=== PATIENT | female | born 1985 | race Caucasian/White ===

== ENCOUNTER 2019-01-11 05:35 | Inpatient (IN) | payer OTHER ==
[2019-01-11] MEDS: Lactated Ringers 1,000 ML IV SCH ×3 (07:30→18:51)
[2019-01-11] MEDS ORDERED: Acetaminophen 325 MG Tab PO PRN (07:33)
[2019-01-11] MEDS ORDERED: Nalbuphine 20 MG/ML 1 ML Syringe IVPUSH PRN (07:33)
[2019-01-11] MEDS ORDERED: Sodium Chloride 0.9% 10 ML Syringe FLUSH PRN (07:33)
[2019-01-11] MEDS ORDERED: Ondansetron 4 MG/2 ML SDV IVPUSH PRN ×2 (07:33→08:40)
[2019-01-11] MEDS ORDERED: Ampicillin 2 GM AdvVial IV ONE ×2 (07:40)
[2019-01-11] MEDS ORDERED: Sodium Chloride 0.9% 100 ML ONE (07:41)
[2019-01-11] MEDS ORDERED: Oxytocin/Lactated Ringers 10 UNIT/1,000 ML BAG IV SCH ×3 (07:45→22:24)
[2019-01-11] MEDS ORDERED: Ampicillin 2 GM in Sodium Chloride 0.9% 100 ML IV ONE (08:00)
[2019-01-11] MEDS ORDERED: Misoprostol 25 MCG (1/4 of 100 MCG) Tab ONE (08:10)
[2019-01-11] MEDS ORDERED: Misoprostol 25 MCG (1/4 of 100 MCG) Tab PO PRN (08:12)
--- NOTE | 2019-01-11 08:31 | PCM.LDHP ---
L&D History of Present Illness - General Date of Service: 01/11/19 Admit Problem/Dx: Patient Status Order with Admit Dx/Problem 01/11/19 07:33 Patient Status [ADT] Routine Admission Diagnosis/Problem Admission Diagnosis/Problem 39 weeks gestation of Source of Information: Patient History Limitations: Reports: No Limitations - History of Present Illness Introduction:: David Villanueva is a 33-year-old 001 at 39 weeks 0 days ([place] 01/18/2019) by LMP consistent with 9 week ultrasound who presents for elective induction of labor. She reports that she has continued to have some occasional contractions over the weekend but nothing regular. Denies any leaking of fluid or vaginal bleeding. Reports good movement. She reports that recently she has increased a little bit for her tobacco use 6-8 cigarettes per day. Present Illness Comments:: David Villanueva is a 33-year-old at 39 weeks 0 days ([place] 01/18/2019 end (by LMP consistent with 9 week ultrasound. Review of her labs shows O- blood type with negative antibody screen. She is immune to rubella and has a history of varicella. Her hepatitis B surface antigen, syphilis and HIV tests were all negative. Her gonorrhea and chlamydia tests were negative. She had a Pap smear done in June 2018 that returned as LGSIL with plan for colposcopy after delivery. Her cystic fibrosis test was negative. She had a negative quad screen. Her anatomy ultrasound was overall normal without any abnormalities noted. She was given RhoGAM on 11/25/2018 when she was seen in the hospital. Her 1 hour glucose tolerance test was normal at 102 on 12/30/2018. Her hematocrit was 36.5 and hemoglobin of 12.0 with platelets of 244 on 2018. She had a urine culture on 12/07/2018 that grew out group B strep and is considered colonized. Her has been complicated by: * Rh- status, vision given RhoGAM at 32 weeks gestational age. Patient to candidate for RhoGAM after delivery as indicated. * GBS bacteriuria - patient with GBS bacteriuria found on urine culture. Patient to be treated with antibiotics in labor * History of abnormal Pap smear during this - patient with LGSIL Pap smear in and plan for colposcopy after delivery * Tobacco use in - patient currently up to 6-8 cigarettes per day and considering method for quitting * History of C. difficile infection requiring stool transplant in 2016 - Related Data Allergies/Adverse Reactions: Allergies Allergy/AdvReac Type Severity Reaction Status Date / Time metoclopramide [From Reglan] Allergy Anxiety Verified 11/25/18 15:37 Home Medications: Home Meds Zolpidem Tartrate [Ambien] 10 mg PO BEDTIME PRN #30 tablet 12/02/18 [Rx] Past Medical History JAILOR History: Reports: : 2 Para: 1 - Infectious Disease History Infectious Disease History: Reports: C-Difficile (in 2016, required stool transplant) - Past Surgical History GI Surgical History: Reports: Cholecystectomy (12/2012), Other (See Below) ( Stool transplant 07/2016) Musculoskeletal Surgical History: Reports: Other (See Below) (Right hip surgery for muscular tear11/2012) Social & Family History - Tobacco Use Smoking Status *Q: Current Every Day Smoker Tobacco Use Within Last Twelve Months: Cigarettes - Tobacco Core Measures Tobacco Use/Smoking Within Last 30 Days: Yes Smoking Frequency Within Last 30 Days: Reports: Five or More Cigarettes Per Day Smokeless Tobacco Use in Last 30 Days: No Desires Tobacco Cessation Medication: Yes (considering options and will discuss at time of discharge) - Alcohol Use Alcohol Use History: No - Recreational Drug Use Recreational Drug Use: No Drug Use in Last 12 Months: No - Living Situation & Occupation Living situation: Reports: Single, with Significant Other H&P Review of Systems - Review of Systems: Review Of Systems: See Below General: Denies: Fever, Chills, Malaise, Fatigue HEENT: Reports: Headaches (occasional). Denies: Rhinitis, Post Nasal Drip, Sinus Congestion, Sore Throat, Visual Changes Pulmonary: Denies: Shortness of Breath, Wheezing, Cough Cardiovascular: Denies: Chest Pain, Palpitations, Dyspnea on Exertion Gastrointestinal: Denies: Abdominal Pain, Constipation, Diarrhea, Nausea, Vomiting Genitourinary: Denies: Dysuria, Frequency, Burning, Pain, Urgency Musculoskeletal: Reports: Back Pain (and hip pain) Skin: Denies: Rash, Lesions Hematologic/Lymphatic: Denies: Anemia, Easy Bleeding, Easy Bruising Immunologic: Reports: Seasonal Allergy L&D Exam - Exam Exam: See Below - Vital Signs Vital Signs: Last Vital Signs Temp 37.2 C 01/11/19 07:30 Pulse 104 H 01/11/19 07:30 Resp 18 01/11/19 07:30 BP 104/70 01/11/19 07:30 Pulse Ox 97 01/11/19 07:30 Weight: 93.894 kg - OB Specific Contraction Duration (sec): 0 Contraction Frequency (min): 0 Contraction Intensity: Irritability Movement: Active Heart Tones: Present Heart Tones per Min: 130 (positive 15 x 15 accelerations, no decelerations ) Heart Rate (FHR) Variability: Moderate (6-25 bmp) Presentation: Vertex Estimated Weight: 7-7.5 lbs by Leopolds - Dueñas Score Dueñas Score Cervix Position: Posterior Dueñas Score Consistency: Soft Dueñas Score Effacement: 31-50% (50%) Dueñas Score Dilation: 1-2 cm (1 cm) Dueñas Score 's Station: -3 Dueñas Score Total: 4 - Exam General: Alert, Oriented HEENT: Conjunctiva Clear, EOMI Neck: Supple, Trachea Midline Lungs: Clear to Auscultation, Normal Respiratory Effort Cardiovascular: Regular Rate, Regular Rhythm GI/Abdominal Exam: Soft, Non-Tender, No Distention. No: Guarding, Rigid, Rebound Genitourinary: Normal external exam Extremities: Normal Inspection, No Pedal Edema Skin: Warm, Dry, Intact Psychiatric: Alert, Normal Affect, Normal Mood - Problem List (1) 39 weeks gestation of SNOMED Code(s): 18028235 ICD Code: Z3A.39 - 39 WEEKS GESTATION OF Status: Acute Current Visit: Yes (2) Rh negative state in antepartum period SNOMED Code(s): 225405015 ICD Code: O26.899 - OTH RELATED CONDITIONS, UNSPECIFIED TRIMESTER; Z67.91 - UNSPECIFIED BLOOD TYPE, RH NEGATIVE Status: Acute Current Visit: Yes (3) GBS bacteriuria SNOMED Code(s): 54455623 ICD Code: R82.71 - BACTERIURIA Status: Acute Current Visit: Yes (4) Tobacco use during SNOMED Code(s): 506436018187616 ICD Code: O99.330 - SMOKING (TOBACCO) COMPLICATING , UNSP TRIMESTER Status: Acute Current Visit: Yes Problem List Initiated/Reviewed/Updated: Yes Orders Last 24hrs: Active Orders 24 hr Category Date Time Status Patient Status [ADT] Routine ADT 01/11/19 07:33 Active Activity as Tolerated [RC] PFP Care 01/11/19 07:33 Active Communication Order [RC] ASDIRECTED Care 01/11/19 07:33 Active Communication Order [RC] ASDIRECTED Care 01/11/19 08:13 Active Communication Order [RC] ASDIRECTED Care 01/11/19 08:13 Active Communication Order [RC] ASDIRECTED Care 01/11/19 08:13 Active Heart Tones [RC] ASDIRECTED Care 01/11/19 07:34 Active Non Stress Test [RC] PER UNIT ROUTINE Care 01/11/19 07:33 Active Notify Provider Vital Signs [RC] PRN Care 01/11/19 07:35 Active Notify Provider [RC] ASDIRECTED Care 01/11/19 08:13 Active Notify Provider [RC] PFP Care 01/11/19 07:33 Active Notify Provider [RC] PRN Care 01/11/19 07:33 Active Peripheral IV Care [RC] . DIRECTED Care 01/11/19 07:34 Active Pump Management, Intrathecal [RC] ASDIRECTED Care 01/11/19 07:34 Active Vaginal Exam [RC] ASDIRECTED Care 01/11/19 08:13 Active Vital Signs [RC] PER UNIT ROUTINE Care 01/11/19 07:33 Active Regular Diet [DIET] Diet 01/11/19 Breakfast Active CBC WITH AUTO DIFF [HEME] Routine Lab 01/11/19 07:33 Ordered DRUG SCREEN, URINE [URCHEM] Routine Lab 01/11/19 07:33 Ordered RAPID PLASMA REAGIN,RPR [CHEM] Routine Lab 01/11/19 07:33 Ordered Acetaminophen [Tylenol] Med 01/11/19 07:33 Active 650 mg PO Q6H PRN Ampicillin 1 gm Med 01/11/19 12:00 Active Sodium Chloride 0.9% [Normal Saline] 100 ml IV Q4H Ampicillin 2 gm Med 01/11/19 08:00 Active Sodium Chloride 0.9% [Normal Saline] 100 ml IV ONETIME Lactated Ringers [Ringers, Lactated] 1,000 ml Med 01/11/19 07:45 Active IV ASDIRECTED Nalbuphine [Nubain] Med 01/11/19 07:33 Active 10 mg IVPUSH Q2H PRN Ondansetron [Zofran] Med 01/11/19 07:33 Active 4 mg IVPUSH Q4H PRN Oxytocin/Lactated Ringers [Pitocin in LR 10 Units/1,000 Med 01/11/19 07:45 Active ML] 10 unit in 1,000 ml IV .CONTINUOUS Sodium Chloride 0.9% [Saline Flush] Med 01/11/19 07:33 Active 10 ml FLUSH ASDIRECTED PRN miSOPROStol [Cytotec] Med 01/11/19 08:12 Active 25 mcg PO Q4H PRN Electronic Heart Tones Ext w TOCO [WOMSER] Oth 01/11/19 07:33 Ordered Routine Electronic Heart Tones Internal [WOMSER] Per Unit Ot 01/11/19 07:33 Ordered Routine Medication Administration Instruction [OM.PC] Ot 01/11/19 08:15 Ordered ASDIRECTED Peripheral IV Insertion Adult [OM.PC] Routine Ot 01/11/19 07:33 Ordered Resuscitation Status Routine Resus Stat 01/11/19 07:33 Ordered Medication Orders Acetaminophen (Tylenol) 650 mg PO Q6H PRN PRN Reason: Pain (Mild 1-3) and fever Ampicillin Sodium 2 gm/ Sodium (Chloride) 100 mls @ 200 mls/hr IV ONETIME ONE Stop: 01/11/19 08:29 Last Admin: 01/11/19 07:50 Dose: 200 mls/hr Ampicillin Sodium 1 gm/ Sodium (Chloride) 100 mls @ 200 mls/hr IV Q4H LUZ Lactated Ringer's (Ringers, Lactated) 1,000 mls @ 100 mls/hr IV ASDIRECTED LUZ Last Admin: 01/11/19 07:30 Dose: 100 mls/hr Oxytocin/Lactated Ringer's (Pitocin In Lr 10 Units/1,000 Ml) 10 unit in 1,000 mls @ 100 mls/hr IV .CONTINUOUS LUZ; Protocol Misoprostol (Cytotec) 25 mcg PO Q4H PRN PRN Reason: cervical ripening Nalbuphine HCl (Nubain) 10 mg IVPUSH Q2H PRN PRN Reason: pain Ondansetron HCl (Zofran) 4 mg IVPUSH Q4H PRN PRN Reason: Nausea/Vomiting Sodium Chloride (Saline Flush) 10 ml FLUSH ASDIRECTED PRN PRN Reason: Keep Vein Open Assessment/Plan Comment:: Speculum placed during pelvic exam and cervix was visualized. A 24 [place] Francis catheter was placed through the cervix and inflated with 50 mL of sterile water. Mother and baby tolerated procedure without difficulty. Refer to observation for elective induction of labor Continue Francis bulb for mechanical dilation of the cervix with mild traction as tolerated Start induction of labor with Cytotec 25 mcg vaginally now and every 4 hours Intermittent monitoring while on Cytotec with monitoring for 30 minutes after placement of Cytotec and may ambulate as tolerated with category [address] IV and have Lactated Ringer's at 125 ml/hr if not tolerating regular diet May have regular diet while on Cytotec induction Activity as tolerated May have epidural as desired Plans to breast-feed after delivery Start on ampicillin 2 g now and have 1 g every 4 hours after for GBS prophylaxis Anticipate vaginal delivery unless otherwise indicated Mario Orr M.D. 8:57 AM 01/11/2019
[2019-01-11] MEDS ORDERED: ePHEDrine 50 MG/ML SDV IVPUSH PRN (08:40)
[2019-01-11] MEDS ORDERED: fentaNYL 100 MCG/2 ML SDV EPIDUR PRN (08:40)
[2019-01-11] MEDS ORDERED: fentaNYL/Bupivacaine-NS 2 MCG/ML-0.125%/PF 100 ML Bag EP SCH (08:45)
[2019-01-11] MEDS ORDERED: Phenylephrine 1 MG in Sodium Chloride 0.9% 10 ML IV SCH (08:45)
--- NOTE | 2019-01-11 08:54 | PCM.PREANE ---
Preanesthetic Assessment - Anesthesia/Transfusion/Family Hx Anesthesia History: Prior Anesthesia Without Reaction Family History of Anesthesia Reaction: No Transfusion History: No Prior Transfusion(s) Intubation History: Unknown - Review of Systems General: No Symptoms Pulmonary: No Symptoms (Smoker:7 cigarettes/day) Cardiovascular: No Symptoms Gastrointestinal: No Symptoms (GERD) Neurological: No Symptoms (Back pain with /Hip pain chronic has had hip surgery), Headache Other: Reports: None - Physical Assessment NPO Status Date: 01/11/19 NPO Status Time: 09:30 Pulse: 104 O2 Sat by Pulse Oximetry: 97 Respiratory Rate: 18 Blood Pressure: 104/70 Temperature: 37.2 C Vital Signs: Last Vital Signs Temp 37.2 C 01/11/19 07:30 Pulse 104 H 01/11/19 07:30 Resp 18 01/11/19 07:30 BP 104/70 01/11/19 07:30 Pulse Ox 97 01/11/19 07:30 Height: 1.79 m Weight: 93.894 kg ASA Class: 2 Mental Status: Alert & Oriented x3 Airway Class: Mallampati = 2 Dentition: Reports: Normal Dentition, Caries Thyro-Mental Finger Breadths: 3 Mouth Opening Finger Breadths: 3 ROM/Head Extension: Full Lungs: Clear to Auscultation, Normal Respiratory Effort Cardiovascular: Regular Rate, Regular Rhythm, No Murmurs - Lab Values: Laboratory Last Values Urine Opiates Screen Negative (ILTQVM=246) 01/11/19 08:15 Ur Buprenorphine Scrn Negative (CUTOFF=10) 01/11/19 08:15 Ur Oxycodone Screen Negative (XCT8BO=175) 01/11/19 08:15 Urine Methadone Screen Negative (DOZNGE=135) 01/11/19 08:15 Ur Propoxyphene Screen Negative (EDAPWA=834) 01/11/19 08:15 Ur Barbiturates Screen Negative (HTAYNH=803) 01/11/19 08:15 Ur Tricyclics Screen Negative (LCJHNP=365) 01/11/19 08:15 Ur Phencyclidine Scrn Negative (CUTOFF=25) 01/11/19 08:15 Ur Amphetamine Screen Negative (XKAXNL=272) 01/11/19 08:15 U Methamphetamines Scrn Negative (GPKNAE=380) 01/11/19 08:15 U Benzodiazepines Scrn Negative (TVGBOJ=459) 01/11/19 08:15 U Cocaine Metab Screen Negative (MTMIEY=668) 01/11/19 08:15 U Marijuana (THC) Screen Negative (CUTOFF=50) 01/11/19 08:15 - Allergies Allergies/Adverse Reactions: Allergies Allergy/AdvReac Type Severity Reaction Status Date / Time metoclopramide [From Reglan] Allergy Anxiety Verified 11/25/18 15:37 - Anesthesia Plan Pre-Op Medication Ordered: None - Acknowledgements Anesthesia Type Planned: Epidural Pt an Appropriate Candidate for the Planned Anesthesia: Yes Alternatives and Risks of Anesthesia Discussed w Pt/Guardian: Yes Pt/Guardian Understands and Agrees with Anesthesia Plan: Yes PreAnesthesia Questionnaire REFERENCE LIBRARIAN History: Reports: - Infectious Disease History Infectious Disease History: Reports: C-Difficile (in 2015, required stool transplant) - Past Surgical History GI Surgical History: Reports: Cholecystectomy (12/2012), Other (See Below) ( Stool transplant 07/2016) Musculoskeletal Surgical History: Reports: Other (See Below) (Right hip surgery for muscular tear11/2012) - SUBSTANCE USE Smoking Status *Q: Current Every Day Smoker Tobacco Use Within Last Twelve Months: Cigarettes Recreational Drug Use History: No - HOME MEDS Home Medications: Home Meds Zolpidem Tartrate [Ambien] 10 mg PO BEDTIME PRN #30 tablet 12/02/18 [Rx] - CURRENT (IN HOUSE) MEDS Current Meds: Current Medications Acetaminophen (Tylenol) 650 mg PO Q6H PRN PRN Reason: Pain (Mild 1-3) and fever Ephedrine Sulfate (Ephedrine Sulfate) 5 mg IVPUSH ASDIRECTED PRN PRN Reason: Hypotension Fentanyl (Sublimaze) 100 mcg EPIDUR Q3H PRN PRN Reason: Pain Fentanyl/Bupivacaine HCl (Fentanyl/Bupivacaine/Ns 2 Mcg-0.125% 100 Ml) 100 ml EPIDUR ASDIRECTED LUZ Ampicillin Sodium 1 gm/ Sodium (Chloride) 100 mls @ 200 mls/hr IV Q4H LUZ Lactated Ringer's (Ringers, Lactated) 1,000 mls @ 100 mls/hr IV ASDIRECTED LUZ Last Admin: 01/11/19 07:30 Dose: 100 mls/hr Oxytocin/Lactated Ringer's (Pitocin In Lr 10 Units/1,000 Ml) 10 unit in 1,000 mls @ 100 mls/hr IV .CONTINUOUS LUZ; Protocol Phenylephrine HCl 1 mg/ Sodium (Chloride) 10.1 mls @ 1 mls/sec IV TITRATE LUZ; Protocol Misoprostol (Cytotec) 25 mcg PO Q4H PRN PRN Reason: cervical ripening Nalbuphine HCl (Nubain) 10 mg IVPUSH Q2H PRN PRN Reason: pain Ondansetron HCl (Zofran) 4 mg IVPUSH Q4H PRN PRN Reason: Nausea/Vomiting Ondansetron HCl (Zofran) 4 mg IVPUSH ONETIME PRN PRN Reason: Nausea/Vomiting Sodium Chloride (Saline Flush) 10 ml FLUSH ASDIRECTED PRN PRN Reason: Keep Vein Open Discontinued Medications Ampicillin Sodium (Ampicillin) Confirm Administered Dose 2 gm IV .STK-MED ONE Stop: 01/11/19 07:41 Ampicillin Sodium (Ampicillin) Confirm Administered Dose 2 gm IV .STK-MED ONE Stop: 01/11/19 07:41 Ampicillin Sodium 2 gm/ Sodium (Chloride) 100 mls @ 200 mls/hr IV ONETIME ONE Stop: 01/11/19 08:29 Last Admin: 01/11/19 07:50 Dose: 200 mls/hr Sodium Chloride (Normal Saline) Confirm Administered Dose 100 mls @ as directed .ROUTE .STK-MED ONE Stop: 01/11/19 07:42 Misoprostol (Cytotec) Confirm Administered Dose 25 mcg .ROUTE .STK-MED ONE Stop: 01/11/19 08:11 Last Admin: 01/11/19 08:14 Dose: 25 mcg
[2019-01-11] MEDS: Ampicillin 1 GM in Sodium Chloride 0.9% 100 ML IV SCH ×3 (12:24→20:00)
--- NOTE | 2019-01-11 12:28 | PCM.PNLD ---
Labor Progress Note - VS & Meds Vital Signs: Last Vital Signs Temp 37.2 C 01/11/19 08:57 Pulse 104 H 01/11/19 08:57 Resp 18 01/11/19 08:57 BP 104/70 01/11/19 08:57 Pulse Ox 97 01/11/19 08:57 Active Medications: Current Medications Acetaminophen (Tylenol) 650 mg PO Q6H PRN PRN Reason: Pain (Mild 1-3) and fever Ephedrine Sulfate (Ephedrine Sulfate) 5 mg IVPUSH ASDIRECTED PRN PRN Reason: Hypotension Fentanyl (Sublimaze) 100 mcg EPIDUR Q3H PRN PRN Reason: Pain Fentanyl/Bupivacaine HCl (Cywekdia-Clloh-Qg 2 Mcg/Ml-0.125%) 100 ml EP ASDIRECTED LUZ Ampicillin Sodium 1 gm/ Sodium (Chloride) 100 mls @ 200 mls/hr IV Q4H LUZ Lactated Ringer's (Ringers, Lactated) 1,000 mls @ 100 mls/hr IV ASDIRECTED LUZ Last Admin: 01/11/19 11:46 Dose: 100 mls/hr Oxytocin/Lactated Ringer's (Pitocin In Lr 10 Units/1,000 Ml) 10 unit in 1,000 mls @ 100 mls/hr IV .CONTINUOUS LUZ; Protocol Phenylephrine HCl 1 mg/ Sodium (Chloride) 10.1 mls @ 1 mls/sec IV TITRATE LUZ; Protocol Oxytocin/Lactated Ringer's (Pitocin In Lr 10 Units/1,000 Ml) 10 unit in 1,000 mls @ 12 mls/hr IV TITRATE LUZ; Protocol Nalbuphine HCl (Nubain) 10 mg IVPUSH Q2H PRN PRN Reason: pain Ondansetron HCl (Zofran) 4 mg IVPUSH Q4H PRN PRN Reason: Nausea/Vomiting Ondansetron HCl (Zofran) 4 mg IVPUSH ONETIME PRN PRN Reason: Nausea/Vomiting Sodium Chloride (Saline Flush) 10 ml FLUSH ASDIRECTED PRN PRN Reason: Keep Vein Open Discontinued Medications Ampicillin Sodium (Ampicillin) Confirm Administered Dose 2 gm IV .STK-MED ONE Stop: 01/11/19 07:41 Ampicillin Sodium (Ampicillin) Confirm Administered Dose 2 gm IV .STK-MED ONE Stop: 01/11/19 07:41 Ampicillin Sodium 2 gm/ Sodium (Chloride) 100 mls @ 200 mls/hr IV ONETIME ONE Stop: 01/11/19 08:29 Last Admin: 01/11/19 07:50 Dose: 200 mls/hr Sodium Chloride (Normal Saline) Confirm Administered Dose 100 mls @ as directed .ROUTE .STK-MED ONE Stop: 01/11/19 07:42 Misoprostol (Cytotec) Confirm Administered Dose 25 mcg .ROUTE .STK-MED ONE Stop: 01/11/19 08:11 Last Admin: 01/11/19 08:14 Dose: 25 mcg Misoprostol (Cytotec) 25 mcg PO Q4H PRN PRN Reason: cervical ripening - Uterine Contractions Contraction Frequency (min): 0 Contraction Duration (sec): 0 Contraction Intensity: Irritability - Monitoring Monitor Mode: Doppler/Auscultation Heart Rate (FHR) Baseline: 130 Heart Rate (FHR) Variability: Moderate (6-25 bmp) Accelerations: Present, 15x15 Decelerations: None - Vaginal Exam Dilation (cm): 3 Effacement (Percent): 80 Station: -3 (Difficult to assess with Francis bulb in place) Cervical Position: Anterior Sterile Vaginal Exam Performed By: Mario Orr Vaginal Exam Comment: Francis bulb in place. Minimal amount of bleeding in catheter. Cervix not dilated enough to remove Francis balloon through cervix. Will transition to pitocin for continued induction of labor. - Labor Progress (Free Text) Labor Progress: Patient progressing well Receiving second dose of Ampicillin, continue during induction of labor Continue Francis bulb on traction Transition to pitocin for continued induction of labor Anticipate vaginal delivery unless otherwise indicated. Mario Orr MD 12:28 PM 01/11/2019
--- NOTE | 2019-01-11 17:53 | PCM.PNLD ---
Labor Progress Note - VS & Meds Vital Signs: Last Vital Signs Temp 37.2 C 01/11/19 08:57 Pulse 104 H 01/11/19 08:57 Resp 18 01/11/19 08:57 BP 104/70 01/11/19 08:57 Pulse Ox 97 01/11/19 08:57 Active Medications: Current Medications Acetaminophen (Tylenol) 650 mg PO Q6H PRN PRN Reason: Pain (Mild 1-3) and fever Ephedrine Sulfate (Ephedrine Sulfate) 5 mg IVPUSH ASDIRECTED PRN PRN Reason: Hypotension Fentanyl (Sublimaze) 100 mcg EPIDUR Q3H PRN PRN Reason: Pain Last Admin: 01/11/19 13:29 Dose: 100 mcg Fentanyl/Bupivacaine HCl (Cqtxsgiz-Otamp-Fe 2 Mcg/Ml-0.125%) 100 ml EP ASDIRECTED LUZ Last Admin: 01/11/19 13:28 Dose: 100 ml Ampicillin Sodium 1 gm/ Sodium (Chloride) 100 mls @ 200 mls/hr IV Q4H LUZ Last Admin: 01/11/19 16:49 Dose: 200 mls/hr Lactated Ringer's (Ringers, Lactated) 1,000 mls @ 100 mls/hr IV ASDIRECTED LUZ Last Admin: 01/11/19 11:46 Dose: 100 mls/hr Oxytocin/Lactated Ringer's (Pitocin In Lr 10 Units/1,000 Ml) 10 unit in 1,000 mls @ 100 mls/hr IV .CONTINUOUS LUZ; Protocol Phenylephrine HCl 1 mg/ Sodium (Chloride) 10.1 mls @ 1 mls/sec IV TITRATE LUZ; Protocol Oxytocin/Lactated Ringer's (Pitocin In Lr 10 Units/1,000 Ml) 10 unit in 1,000 mls @ 12 mls/hr IV TITRATE LUZ; Protocol Last Titration: 01/11/19 17:40 Dose: 8 munits/min, 48 mls/hr Nalbuphine HCl (Nubain) 10 mg IVPUSH Q2H PRN PRN Reason: pain Ondansetron HCl (Zofran) 4 mg IVPUSH Q4H PRN PRN Reason: Nausea/Vomiting Ondansetron HCl (Zofran) 4 mg IVPUSH ONETIME PRN PRN Reason: Nausea/Vomiting Sodium Chloride (Saline Flush) 10 ml FLUSH ASDIRECTED PRN PRN Reason: Keep Vein Open Discontinued Medications Ampicillin Sodium (Ampicillin) Confirm Administered Dose 2 gm IV .STK-MED ONE Stop: 01/11/19 07:41 Ampicillin Sodium (Ampicillin) Confirm Administered Dose 2 gm IV .STK-MED ONE Stop: 01/11/19 07:41 Ampicillin Sodium 2 gm/ Sodium (Chloride) 100 mls @ 200 mls/hr IV ONETIME ONE Stop: 01/11/19 08:29 Last Admin: 01/11/19 07:50 Dose: 200 mls/hr Sodium Chloride (Normal Saline) Confirm Administered Dose 100 mls @ as directed .ROUTE .STK-MED ONE Stop: 01/11/19 07:42 Misoprostol (Cytotec) Confirm Administered Dose 25 mcg .ROUTE .STK-MED ONE Stop: 01/11/19 08:11 Last Admin: 01/11/19 08:14 Dose: 25 mcg Misoprostol (Cytotec) 25 mcg PO Q4H PRN PRN Reason: cervical ripening - Uterine Contractions Contraction Frequency (min): 2-3 Contraction Duration (sec): 60-75 Contraction Intensity: Moderate to Strong - Monitoring Monitor Mode: Doppler/Auscultation Heart Rate (FHR) Baseline: 135 Heart Rate (FHR) Variability: Moderate (6-25 bmp) Accelerations: Present, 15x15 Decelerations: None Strip Review: Category I - Vaginal Exam Dilation (cm): 7 Effacement (Percent): 80 Station: -1 Cervical Position: Anterior Sterile Vaginal Exam Performed By: Mario Orr Vaginal Exam Comment: Artificial rupture membranes performed with [place] was return of clear fluid. Mother and baby tolerated without difficulty. - Labor Progress (Free Text) Labor Progress: Patient progressing well Artificial rupture membranes with clear fluid Epidural in place Continue ampicillin for GBS prophylaxis Vitals per usual routine Anticipate vaginal delivery unless otherwise indicated Mario Orr M.D. 5:40 PM 01/11/2019
[2019-01-11] MEDS ORDERED: Lidocaine 1.5% with EPINEPHrine 1:200,000 5 ML Amp ONE (22:00)
[2019-01-11] MEDS ORDERED: Bupivacaine 0.25% 10 ML SDV ONE (22:00)
--- NOTE | 2019-01-11 22:14 | PCM.DEL ---
L & D Note - General Info Date of Service: 01/11/19 Mother's Due Date: 01/18/19 - Delivery Note Labor: Augmented by ARM, Augmented by Oxytocin Cervical Ripening Method: Balloon Device (24 Indonesian Francis bulb with 50 mL of sterile saline), Misoprostil Delivery Outcome: Livebirth Infant Delivery Method: Spontaneous Vaginal Delivery-Single Presentation: Right Occiput Anterior (TRUDY) Nuchal Cord: None Prep: Povidone-Iodine (Betadine Anesthesia Type: Epidural Amniotic Fluid Description: Clear Episiotomy Type: None Laceration: 1st Degree (left labial repaired with 4-0 vicryl, bilateral periurethral hemostatic not repaired) Suture type: Vicryl Suture size: 4-0 Placenta: Intact, Spontaneous, Manual Removal (of retained piece of placenta) Cord: 3 Vessels Estimated Blood Loss: 350 Resuscitation Needed: Yes : Bulb Syringe, Stimulated, Warmed, [place] Used Provider: Mario Orr Score 1 min: 8 Score 5 min: 9 Post Delivery Events: Retained Placenta (small piece of retained placenta, manually removed) Delivery Comments (Free Text/Narrative):: Stage I: David Villanueva was admitted for elective induction of labor. On admission her cervix was dilated to 1 cm. She was GBS positive and was started on ampicillin for GBS prophylaxis. She received a total of 4 doses prior to delivery. She had a 24 Indonesian Francis bulb placed under direct visualization with a speculum. The Francis bulb was filled with 50 mL of sterile saline. She started on Cytotec for cervical ripening after placement of the Francis bulb. After the first dose of Cytotec her cervix was 3 cm dilated and 80% effaced and she was transitioned to Pitocin for augmentation of labor. The Francis bulb came out on its own after several hours of augmentation with Pitocin. She is given in epidural for anesthesia. She had artificial rupture membranes with clear fluid. She progressed complete and pushing. Stage II: On 01/11/2019 she had a normal vaginal delivery of a live male at 2131. Apgars of 8 & 9. Weight of 3540 g (7 lbs 12.9 oz). Length of 20 inches. There was no nuchal cord. was delivered in TRUDY position. The cord was doubly clamped and cut by father of the . was placed on mother's abdomen. Stage III: She had a spontaneous delivery of an intact placenta in Jamil presentation. On manual exploration of the uterine cavity there is noted to be a small piece of placenta that was retained and this was manually removed. Three vessel cord. She was given pitocin and fundal massage. She had a first- degree left labial laceration that was repaired with 4-0 Vicryl. She had first- degree bilateral periurethral labial lacerations that were hemostatic and not repaired. Mom and baby were stable to recovery. EBL of 350 mL. Mario Orr MD 10:13 PM 01/11/2019 Induction Criteria - Dueñas Score Dueñas Score Dilation: 1-2 cm Dueñas Score Effacement: 40-50% Dueñas Score 's Station: -3 Dueñas Score Consistency: Soft Dueñas Score Cervix Position: Posterior Dueñas Score Total: 4 - Induction Gestational Age >/= 39 wks: Yes Estimated Pelvis: Reports: Adequate Reassuring Monitoring Strip: Yes Absence of Tachy Systole: Yes - Augmentation Estimated Pelvis: Reports: Adequate Weight Estimated:: Reports: AGA Reassuring Monitoring Strip: Yes Absence of Tachy Systole: Yes - General Info Date of Service: 01/11/19 - Patient Data Vitals - Most Recent: Last Vital Signs Temp 37.2 C 01/11/19 08:57 Pulse 104 H 01/11/19 08:57 Resp 18 01/11/19 08:57 BP 104/70 01/11/19 08:57 Pulse Ox 97 01/11/19 08:57 Weight - Most Recent: 93.894 kg I&O - Last 24 Hours: Intake & Output 01/11/19 01/11/19 01/11/19 06:59 14:59 22:59 Intake Total 760 Balance 760 Lab Results Last 24 Hours: Laboratory Results - last 24 hr 01/11/19 01/11/19 01/11/19 Range/Units 08:15 08:46 08:46 WBC 10.87 H (3.98-10.04) K/mm3 RBC 4.11 (3.98-5.22) M/mm3 Hgb 12.4 (11.2-15.7) gm/L Hct 37.2 (34.1-44.9) % MCV 90.5 (79.4-94.8) fl MCH 30.2 (25.6-32.2) pg MCHC 33.3 (32.2-35.5) g/dl RDW Std Deviation 42.6 (36.4-46.3) fL Plt Count 252 (182-369) K/mm3 MPV 10.5 (9.4-12.3) fl Neut % (Auto) 77.9 H (34.0-71.1) % Lymph % (Auto) 12.3 L (19.3-51.7) % [place] % (Auto) 8.0 (4.7-12.5) % Eos % (Auto) 1.1 (0.7-5.8) Baso % (Auto) 0.1 (0.1-1.2) % Neut # (Auto) 8.46 H (1.56-6.13) K/mm3 Lymph # (Auto) 1.34 (1.18-3.74) K/mm3 [place] # (Auto) 0.87 H (0.24-0.36) K/mm3 Eos # (Auto) 0.12 (0.04-0.36) K/mm3 Baso # (Auto) 0.01 (0.01-0.08) K/mm3 Urine Opiates Screen Negative (RPCWBW=804) Ur Buprenorphine Scrn Negative (CUTOFF=10) Ur Oxycodone Screen Negative (FHV2BW=457) Urine Methadone Screen Negative (IBDVWO=484) Ur Propoxyphene Screen Negative (XBWRHT=474) Ur Barbiturates Screen Negative (PXXEZR=936) Ur Tricyclics Screen Negative (SLRISN=866) Ur Phencyclidine Scrn Negative (CUTOFF=25) Ur Amphetamine Screen Negative (VZOPBG=673) U Methamphetamines Scrn Negative (QDDVDB=330) U Benzodiazepines Scrn Negative (DWZTQS=067) U Cocaine Metab Screen Negative (TEQQCE=877) U Marijuana (THC) Screen Negative (CUTOFF=50) RPR Non-reactive (NONREACTIVE) Med Orders - Current: Current Medications Acetaminophen (Tylenol) 650 mg PO Q6H PRN PRN Reason: Pain (Mild 1-3) and fever Ephedrine Sulfate (Ephedrine Sulfate) 5 mg IVPUSH ASDIRECTED PRN PRN Reason: Hypotension Fentanyl (Sublimaze) 100 mcg EPIDUR Q3H PRN PRN Reason: Pain Last Admin: 01/11/19 13:29 Dose: 100 mcg Fentanyl/Bupivacaine HCl (Ugrbzjoh-Cryiv-Yg 2 Mcg/Ml-0.125%) 100 ml EP ASDIRECTED LUZ Last Admin: 01/11/19 13:28 Dose: 100 ml Ampicillin Sodium 1 gm/ Sodium (Chloride) 100 mls @ 200 mls/hr IV Q4H LUZ Last Admin: 01/11/19 16:49 Dose: 200 mls/hr Lactated Ringer's (Ringers, Lactated) 1,000 mls @ 100 mls/hr IV ASDIRECTED LUZ Last Admin: 01/11/19 18:51 Dose: 100 mls/hr Oxytocin/Lactated Ringer's (Pitocin In Lr 10 Units/1,000 Ml) 10 unit in 1,000 mls @ 100 mls/hr IV .CONTINUOUS LUZ; Protocol Phenylephrine HCl 1 mg/ Sodium (Chloride) 10.1 mls @ 1 mls/sec IV TITRATE LUZ; Protocol Oxytocin/Lactated Ringer's (Pitocin In Lr 10 Units/1,000 Ml) 10 unit in 1,000 mls @ 12 mls/hr IV TITRATE LUZ; Protocol Last Titration: 01/11/19 18:50 Dose: 12 munits/min, 72 mls/hr Nalbuphine HCl (Nubain) 10 mg IVPUSH Q2H PRN PRN Reason: pain Ondansetron HCl (Zofran) 4 mg IVPUSH Q4H PRN PRN Reason: Nausea/Vomiting Ondansetron HCl (Zofran) 4 mg IVPUSH ONETIME PRN PRN Reason: Nausea/Vomiting Sodium Chloride (Saline Flush) 10 ml FLUSH ASDIRECTED PRN PRN Reason: Keep Vein Open Discontinued Medications Ampicillin Sodium (Ampicillin) Confirm Administered Dose 2 gm IV .STK-MED ONE Stop: 01/11/19 07:41 Ampicillin Sodium (Ampicillin) Confirm Administered Dose 2 gm IV .STK-MED ONE Stop: 01/11/19 07:41 Ampicillin Sodium 2 gm/ Sodium (Chloride) 100 mls @ 200 mls/hr IV ONETIME ONE Stop: 01/11/19 08:29 Last Admin: 01/11/19 07:50 Dose: 200 mls/hr Sodium Chloride (Normal Saline) Confirm Administered Dose 100 mls @ as directed .ROUTE .STK-MED ONE Stop: 01/11/19 07:42 Misoprostol (Cytotec) Confirm Administered Dose 25 mcg .ROUTE .STK-MED ONE Stop: 01/11/19 08:11 Last Admin: 01/11/19 08:14 Dose: 25 mcg Misoprostol (Cytotec) 25 mcg PO Q4H PRN PRN Reason: cervical ripening - Problem List & Annotations (1) 39 weeks gestation of SNOMED Code(s): 97751155 Code(s): Z3A.39 - 39 WEEKS GESTATION OF Status: Acute Current Visit: Yes (2) Rh negative state in antepartum period SNOMED Code(s): 916075899 Code(s): O26.899 - OTH RELATED CONDITIONS, UNSPECIFIED TRIMESTER; Z67.91 - UNSPECIFIED BLOOD TYPE, RH NEGATIVE Status: Acute Current Visit: Yes (3) GBS bacteriuria SNOMED Code(s): 38411658 Code(s): R82.71 - BACTERIURIA Status: Acute Current Visit: Yes (4) Tobacco use during SNOMED Code(s): 697280820786332 Code(s): O99.330 - SMOKING (TOBACCO) COMPLICATING , UNSP TRIMESTER Status: Acute Current Visit: Yes (5) Vaginal delivery SNOMED Code(s): 091076191 Code(s): O80 - ENCOUNTER FOR FULL-TERM UNCOMPLICATED DELIVERY Status: Acute Current Visit: Yes (6) First degree perineal laceration during delivery SNOMED Code(s): 929439256 Code(s): O70.0 - FIRST DEGREE PERINEAL LACERATION DURING DELIVERY Status: Acute Current Visit: Yes - Problem List Review Problem List Initiated/Reviewed/Updated: Yes - My Orders Last 24 Hours: My Active Orders 01/11/19 07:33 Patient Status [ADT] Routine Activity as Tolerated [RC] PFP Communication Order [RC] ASDIRECTED Non Stress Test [RC] PER UNIT ROUTINE Notify Provider [RC] PFP Notify Provider [RC] PRN Vital Signs [RC] PER UNIT ROUTINE Acetaminophen [Tylenol] 650 mg PO Q6H PRN Nalbuphine [Nubain] 10 mg IVPUSH Q2H PRN Ondansetron [Zofran] 4 mg IVPUSH Q4H PRN Sodium Chloride 0.9% [Saline Flush] 10 ml FLUSH ASDIRECTED PRN Electronic Heart Tones Ext w TOCO [WOMSER] Routine Electronic Heart Tones Internal [WOMSER] Per Unit Routine Peripheral IV Insertion Adult [OM.PC] Routine Resuscitation Status Routine 01/11/19 07:34 Heart Tones [RC] ASDIRECTED Peripheral IV Care [RC] . DIRECTED Pump Management, Intrathecal [RC] ASDIRECTED 01/11/19 07:35 Notify Provider Vital Signs [RC] PRN 01/11/19 07:45 Lactated Ringers [Ringers, Lactated] 1,000 ml IV ASDIRECTED Oxytocin/Lactated Ringers [Pitocin in LR 10 Units/1,000 ML] 10 unit in 1,000 ml IV .CONTINUOUS 01/11/19 08:13 Communication Order [RC] ASDIRECTED Communication Order [RC] ASDIRECTED Communication Order [RC] ASDIRECTED Notify Provider [RC] ASDIRECTED Vaginal Exam [RC] ASDIRECTED 01/11/19 08:15 Medication Administration Instruction [OM.PC] ASDIRECTED 01/11/19 12:00 Ampicillin 1 gm Sodium Chloride 0.9% [Normal Saline] 100 ml IV Q4H 01/11/19 12:21 Communication Order [RC] ASDIRECTED 01/11/19 12:30 Oxytocin/Lactated Ringers [Pitocin in LR 10 Units/1,000 ML] 10 unit in 1,000 ml IV TITRATE 01/11/19 21:56 Patient Status Manage Transfer [TRANSFER] Routine 01/11/19 Breakfast Regular Diet [DIET] - Plan Plan:: Admit to inpatient following normal spontaneous vaginal delivery Continue Pitocin per unit protocol following delivery of placenta and lactated Ringer's until tolerating regular diet Regular diet Vitals per unit routine Ibuprofen and Tylenol for pain control Assist with breast-feeding as needed Continue to monitor lochia Patient is Rh- and she received RhoGAM as indicated based on infant's blood type Anticipate discharge home on day #1 or #2 Mario Orr MD 10:13 PM 01/11/2019
[2019-01-11] MEDS ORDERED: Lanolin 100% Cream 7 GM Tube TOP PRN (22:24)
[2019-01-11] MEDS ORDERED: Witch Hazel Medicated Pads 100/Jar TOP PRN (22:24)
[2019-01-11] MEDS ORDERED: Docusate Sodium 100 MG Cap PO PRN (22:24)
[2019-01-11] MEDS ORDERED: Hydrocortisone Acetate 25 MG Supp RECTAL PRN (22:24)
[2019-01-11] MEDS ORDERED: Magnesium Hydroxide 400 MG/5 ML Susp 30 ML Cup PO PRN (22:24)
[2019-01-11] MEDS ORDERED: Benzocaine/Menthol 20%-0.5% Spray 56 GM Canister TOP PRN (22:24)
[2019-01-11] MEDS: Ibuprofen 600 MG Tab PO PRN (23:30)
[2019-01-12] MEDS: Acetaminophen 325 MG Tab PO PRN ×3 (03:00→22:09)
[2019-01-12] MEDS: Ibuprofen 600 MG Tab PO PRN ×3 (05:30→20:23)
--- NOTE | 2019-01-12 07:36 | PCM.SN ---
- Free Text/Narrative Note: Post Progress Note PPD # 1 Subjective: Doing well overall. Ambulating without difficulty. Lochia minimal. Voiding without difficulty. Tolerating regular diet without nausea or vomiting. Pain controlled with oral medications. Breast-feeding with moderate difficulty with latching. Objective: Vitals: Vital Signs - 24 hr 01/11/19 01/12/19 08:57 03:03 Temperature 37.2 C 36.7 C Pulse, 104 H 90 Peripheral Respiratory 18 15 Rate Blood Pressure 104/70 112/65 O2 Sat by Pulse 97 97 Oximetry Physical Exam General: Alert and oriented, no acute distress Lungs: Clear to auscultation bilaterally Heart: Regular rate and rhythm Abdomen: Soft, minimal appropriate tenderness, non-distended, fundus midline, nontender, and at the umbilicus Extremities: Trace edema bilateral lower extremities to mid shins ASSESSMENT: 33-year-old female 002 s/p normal vaginal delivery PPD #1, complicated by GBS bacteriuria status post 4 doses of ampicillin, Rh- status , tobacco use in , history of abnormal Pap smear and history of C. difficile infection PLAN: Doing well Breast-feeding with moderate difficulty. Assist as needed Lochia minimal. Continue to monitor for appropriate lochia. Continue routine care Patient with O- blood type and with O+ blood type. Patient due for RhoGAM prior to discharge Anticipate discharge home tomorrow Mario Orr MD 7:35 AM 01/12/2019
--- NOTE | 2019-01-12 08:25 | PCM48HPAN ---
Post Anesthesia Note - EVALUATION WITHIN 48HRS OF ANESTHETIC Vital Signs in Normal Range: Yes Patient Participated in Evaluation: Yes Respiratory Function Stable: Yes Airway Patent: Yes Cardiovascular Function Stable: Yes Hydration Status Stable: Yes Pain Control Satisfactory: Yes Nausea and Vomiting Control Satisfactory: Yes Mental Status Recovered: Yes - COMMENTS/OBSERVATIONS Free Text/Narrative:: Patient denies any headaches, residual numbness/tingling to LE, or back pain. Doing well resting in bed.
[2019-01-12] MEDS: Prenatal Multivitamin with Calcium/Folic Acid/Iron Tab PO SCH (08:28)
[2019-01-13] MEDS: Ibuprofen 600 MG Tab PO PRN ×2 (02:13→08:12)
[2019-01-13] MEDS: Acetaminophen 325 MG Tab PO PRN (05:26)
[2019-01-13] MEDS: Prenatal Multivitamin with Calcium/Folic Acid/Iron Tab PO SCH (08:12)
--- NOTE | 2019-01-13 08:35 | PCM.SN ---
- Free Text/Narrative Note: Post Progress Note PPD # 2 Subjective: Doing well overall. Ambulating without difficulty. Lochia minimal. Voiding without difficulty. Tolerating regular diet without nausea or vomiting. Pain controlled with oral medications. Breast-feeding with formula supplementation with minimal difficulty at this time. Objective: Vitals: Vital Signs - 24 hr 01/12/19 01/12/19 01/12/19 09:00 10:06 10:07 Temperature 36.6 C 36.6 C Temperature [ 36.6 C Temporal] Pulse, Peripheral Pulse, 81 81 Peripheral [ Pulse Oximetry] Respiratory 16 16 Rate Blood Pressure Blood Pressure 117/73 117/73 [Upper Arm] O2 Sat by Pulse 10 L 100 Oximetry 01/12/19 01/12/19 01/13/19 15:02 19:52 02:15 Temperature 37.0 C 37.0 C 36.8 C Temperature [ Temporal] Pulse, 83 83 90 Peripheral Pulse, Peripheral [ Pulse Oximetry] Respiratory 16 17 16 Rate Blood Pressure 121/73 109/65 101/62 Blood Pressure [Upper Arm] O2 Sat by Pulse 97 97 98 Oximetry Physical Exam General: Alert and oriented, no acute distress Lungs: Clear to auscultation bilaterally Heart: Regular rate and rhythm Abdomen: Soft, minimal appropriate tenderness, non-distended, fundus midline, nontender, and 2 finger breaths below the umbilicus Extremities: Trace edema bilateral lower extremities to mid shins ASSESSMENT: 33-year-old female 002 s/p normal vaginal delivery PPD #2, complicated by GBS bacteriuria status post 4 doses of ampicillin, Rh- status , tobacco use in , history of abnormal Pap smear and history of C. difficile infection PLAN: Doing well Breast-feeding with formula supplementation with minimal difficulty. Assist as needed Lochia minimal. Continue to monitor for appropriate lochia. Continue routine care Patient with O- blood type and with O+ blood type. Patient given RhoGAM on day #1. Patient started on Wellbutrin SR 150 mg daily for smoking cessation. After 3 days she will increase dose to 150 mg twice daily. Discharge home today Mario Orr MD 8:35 AM 01/13/2019
--- NOTE | 2019-01-13 08:40 | PCM.DCSUM1 ---
Discharge Summary - Hospital Course Free Text/Narrative:: - General Info Date of Service: 01/11/19 Mother's Due Date: 01/18/19 - Delivery Note Labor: Augmented by ARM, Augmented by Oxytocin Cervical Ripening Method: Balloon Device (24 [place] Francis bulb with 50 mL of sterile saline), Misoprostil Delivery Outcome: Livebirth Delivery Method: Spontaneous Vaginal Delivery-Single Presentation: Right Occiput Anterior (TRDUY) Nuchal Cord: None Prep: Povidone-Iodine (Betadine Anesthesia Type: Epidural Amniotic Fluid Description: Clear Episiotomy Type: None Laceration: 1st Degree (left labial repaired with 4-0 vicryl, bilateral periurethral hemostatic not repaired) Suture type: Vicryl Suture size: 4-0 Placenta: Intact, Spontaneous, Manual Removal (of retained piece of placenta) Cord: 3 Vessels Estimated Blood Loss: 350 Resuscitation Needed: Yes [place]: Bulb Syringe, Stimulated, Warmed, [place] Used Provider: Mario Orr Score 1 min: 8 Score 5 min: 9 Post Delivery Events: Retained Placenta (small piece of retained placenta, manually removed) Delivery Comments (Free Text/Narrative):: Stage I: David Villanueva was admitted for elective induction of labor. On admission her cervix was dilated to 1 cm. She was GBS positive and was started on ampicillin for GBS prophylaxis. She received a total of 4 doses prior to delivery. She had a 24 [place] Francis bulb placed under direct visualization with a speculum. The Francis bulb was filled with 50 mL of sterile saline. She started on Cytotec for cervical ripening after placement of the Francis bulb. After the first dose of Cytotec her cervix was 3 cm dilated and 80% effaced and she was transitioned to Pitocin for augmentation of labor. The Francis bulb came out on its own after several hours of augmentation with Pitocin. She is given in epidural for anesthesia. She had artificial rupture membranes with clear fluid. She progressed complete and pushing. Stage II: On 01/11/2019 she had a normal vaginal delivery of a live male at 2131. Apgars of 8 & 9. Weight of 3540 g (7 lbs 12.9 oz). Length of 20 inches. There was no nuchal cord. Infant was delivered in TRUDY position. The cord was doubly clamped and cut by father of the . was placed on mother's abdomen. Stage III: She had a spontaneous delivery of an intact placenta in Jamil presentation. On manual exploration of the uterine cavity there is noted to be a small piece of placenta that was retained and this was manually removed. Three vessel cord. She was given pitocin and fundal massage. She had a first- degree left labial laceration that was repaired with 4-0 Vicryl. She had first- degree bilateral periurethral labial lacerations that were hemostatic and not repaired. Mom and baby were stable to recovery. EBL of 350 mL. HPI Initial Comments: - General Info Date of Service: 01/11/19 Mother's Due Date: 01/18/19 - Delivery Note Labor: Augmented by ARM, Augmented by Oxytocin Cervical Ripening Method: Balloon Device (24 [place] Francis bulb with 50 mL of sterile saline), Misoprostil Delivery Outcome: Livebirth Delivery Method: Spontaneous Vaginal Delivery-Single Presentation: Right Occiput Anterior (TRUDY) Nuchal Cord: None Prep: Povidone-Iodine (Betadine Anesthesia Type: Epidural Amniotic Fluid Description: Clear Episiotomy Type: None Laceration: 1st Degree (left labial repaired with 4-0 vicryl, bilateral periurethral hemostatic not repaired) Suture type: Vicryl Suture size: 4-0 Placenta: Intact, Spontaneous, Manual Removal (of retained piece of placenta) Cord: 3 Vessels Estimated Blood Loss: 350 Resuscitation Needed: Yes : Bulb Syringe, Stimulated, Warmed, [place] Used Provider: Mario Orr Score 1 min: 8 Score 5 min: 9 Post Delivery Events: Retained Placenta (small piece of retained placenta, manually removed) Delivery Comments (Free Text/Narrative):: Stage I: David Villanueva was admitted for elective induction of labor. On admission her cervix was dilated to 1 cm. She was GBS positive and was started on ampicillin for GBS prophylaxis. She received a total of 4 doses prior to delivery. She had a 24 [place] Francis bulb placed under direct visualization with a speculum. The Francis bulb was filled with 50 mL of sterile saline. She started on Cytotec for cervical ripening after placement of the Francis bulb. After the first dose of Cytotec her cervix was 3 cm dilated and 80% effaced and she was transitioned to Pitocin for augmentation of labor. The Francis bulb came out on its own after several hours of augmentation with Pitocin. She is given in epidural for anesthesia. She had artificial rupture membranes with clear fluid. She progressed complete and pushing. Stage II: On 01/11/2019 she had a normal vaginal delivery of a live male at 2131. Apgars of 8 & 9. Weight of 3540 g (7 lbs 12.9 oz). Length of 20 inches. There was no nuchal cord. was delivered in TRUDY position. The cord was doubly clamped and cut by father of the infant. Infant was placed on mother's abdomen. Stage III: She had a spontaneous delivery of an intact placenta in Jamil presentation. On manual exploration of the uterine cavity there is noted to be a small piece of placenta that was retained and this was manually removed. Three vessel cord. She was given pitocin and fundal massage. She had a first- degree left labial laceration that was repaired with 4-0 Vicryl. She had first- degree bilateral periurethral labial lacerations that were hemostatic and not repaired. Mom and baby were stable to recovery. EBL of 350 mL. Brief History: - General Info. Date of Service: 01/11/19. Mother's Due Date: 01/18/19. - Delivery Note. Labor: Augmented by ARM, Augmented by Oxytocin. Cervical Ripening Method: Balloon Device (24 [place] Francis bulb with 50 mL of sterile saline), Misoprostil. Delivery Outcome: Livebirth. Delivery Method: Spontaneous Vaginal Delivery-Single. Presentation: Right Occiput Anterior (TRUYD). Nuchal Cord: None. Prep: Povidone-Iodine (Betadine. Anesthesia Type: Epidural. Amniotic Fluid Description: Clear. Episiotomy Type : None. Laceration: 1st Degree (left labial repaired with 4-0 vicryl, bilateral periurethral hemostatic not repaired). Suture type: Vicryl. Suture size: 4-0. Placenta: Intact, Spontaneous, Manual Removal (of retained piece of placenta). Cord: 3 Vessels. Estimated Blood Loss: 350. Resuscitation Needed: Yes. [place]: Bulb Syringe, Stimulated, Warmed, [place] Used. Provider: Mario Orr. Score 1 min: 8. Score 5 min: 9. Post Delivery Events: Retained Placenta (small piece of retained placenta, manually removed). Delivery Comments (Free Text/Narrative):: Stage I: David Villanueva was admitted for elective induction of labor. On admission her cervix was dilated to 1 cm. She was GBS positive and was started on ampicillin for GBS prophylaxis. She received a total of 4 doses prior to delivery. She had a 24 [place] Fr[place] bulb placed under direct visualization with a speculum. The Francis bulb was filled with 50 mL of sterile saline. She started on Cytotec for cervical ripening after placement of the Francis bulb. After the first dose of Cytotec her cervix was 3 cm dilated and 80% effaced and she was transitioned to Pitocin for augmentation of labor. The Francis bulb came out on its own after several hours of augmentation with Pitocin. She is given in epidural for anesthesia. She had artificial rupture membranes with clear fluid. She progressed complete and pushing. Stage II: On 01/11/2019 she had a normal vaginal delivery of a live male at 2131. Apgars of 8 & 9. Weight of 3540 g (7 lbs 12.9 oz). Length of 20 inches. There was no nuchal cord. was delivered in TRUDY position. The cord was doubly clamped and cut by father of the infant. was placed on mother's abdomen. Stage III: She had a spontaneous delivery of an intact placenta in Jamil presentation. On manual exploration of the uterine cavity there is noted to be a small piece of placenta that was retained and this was manually removed. Three vessel cord. She was given pitocin and fundal massage. She had a first-degree left labial laceration that was repaired with 4-0 Vicryl. She had first-degree bilateral periurethral labial lacerations that were hemostatic and not repaired. Mom and baby were stable to recovery. EBL of 350 mL. Diagnosis: Stroke: No - Discharge Data Discharge Date: 01/13/19 Discharge Disposition: Home, Self-Care 01 Condition: Good - Discharge Diagnosis/Problem(s) (1) 39 weeks gestation of SNOMED Code(s): 21929755 ICD Code: Z3A.39 - 39 WEEKS GESTATION OF Status: Acute Current Visit: Yes (2) Rh negative state in antepartum period SNOMED Code(s): 861267719 ICD Code: O26.899 - OTH RELATED CONDITIONS, UNSPECIFIED TRIMESTER; Z67.91 - UNSPECIFIED BLOOD TYPE, RH NEGATIVE Status: Acute Current Visit: Yes (3) GBS bacteriuria SNOMED Code(s): 60368353 ICD Code: R82.71 - BACTERIURIA Status: Acute Current Visit: Yes (4) Tobacco use during SNOMED Code(s): 311346812178176 ICD Code: O99.330 - SMOKING (TOBACCO) COMPLICATING , UNSP TRIMESTER Status: Acute Current Visit: Yes (5) Vaginal delivery SNOMED Code(s): 429546060 ICD Code: O80 - ENCOUNTER FOR FULL-TERM UNCOMPLICATED DELIVERY Status: Acute Current Visit: Yes (6) First degree perineal laceration during delivery SNOMED Code(s): 351708955 ICD Code: O70.0 - FIRST DEGREE PERINEAL LACERATION DURING DELIVERY Status: Acute Current Visit: Yes - Patient Summary/Data Complications: None Consults: None Hospital Course: David iVllanueva was admitted for elective induction of labor. On admission her cervix was dilated to 1 cm. She was GBS positive and was started on ampicillin for GBS prophylaxis. She received a total of 4 doses prior to delivery. She had a 24 [place] Francis bulb placed under direct visualization with the speculum in and the Francis bulb was filled with 15 mL of sterile saline. She was started on Cytotec for cervical ripening. She received 1 total doses of Cytotec. She was started on pitocin for augmentation of labor. She was given an epidural for anesthesia. She had artificial rupture of membranes with clear fluid. She progressed to complete and began pushing. On 01/11/2019 she had a normal vaginal delivery of a live male at 2131. Apgars of 8 and 9. Weight of 3540 g (7 pounds 12.9 ounces). Her course was uneventful. Her pain was well controlled and she had minimal lochia. She was ambulating, tolerating a regular diet and voiding normally. She was breast-feeding with formula supplementation with minimal difficulty. She was afebrile and her hematocrit was 37.2 on admission. She desired to be discharged home on the morning of PPD #2. Her blood type is O- and infant's blood type was O+. She received RhoGAM on day #1. Patient was started on Wellbutrin SR 150 mg daily for 3 days at time of discharge and she is to increase her dose to 2 times daily on day #4 of the medication. - Patient Instructions Diet: Regular Diet as Tolerated Activity: Apply Ice, As Tolerated Activity, Other: Nothing in the vagina for 6 weeks Driving: May Drive Today Showering/Bathing: May Shower Notify Provider of: Fever, Increased Pain, Swelling and Redness, Drainage, Nausea and/or Vomiting Other/Special Instructions: Please contact your physician's office if you have heavy vaginal bleeding enough to soak a pad in less than an hour for several hours. Monitor for any signs of an infection in the breasts with severe pain or redness of the breast. Patient should stop smoking 5-7 days after starting her Wellbutrin SR. - Discharge Plan *PRESCRIPTION DRUG MONITORING PROGRAM REVIEWED*: Not Applicable *COPY OF PRESCRIPTION DRUG MONITORING REPORT IN PATIENT SAMANTA: Not Applicable Prescriptions/Med Rec: buPROPion HCl [Wellbutrin Sr] 150 mg PO BID #60 tab.er.12h Home Medications: Home Meds Acetaminophen [Tylenol] 650 mg PO Q6H PRN tablet 01/13/19 [Rx] Benzocaine/Menthol [Dermoplast Pain Relief [facility]] 1 spray TOP ASDIRECTED PRN canister 01/13/19 [Rx] Docusate Sodium [Colace] 100 mg PO BID PRN cap 01/13/19 [Rx] Hydrocortisone Acetate [Anucort-HC] 25 mg RECTAL BID PRN supp 01/13/19 [Rx] Ibuprofen [Motrin] 600 mg PO Q6H PRN tablet 01/13/19 [Rx] Lanolin [Lansinoh HPA] 1 applic TOP ASDIRECTED PRN tube 01/13/19 [Rx] Vit with Ca/FA/Iron [ Plus Iron] 1 each PO DAILY tablet [Rx] Witch [place] [Tucks] 1 pad TOP ASDIRECTED PRN pad 01/13/19 [Rx] buPROPion HCl [Wellbutrin Sr] 150 mg PO BID #60 tab.er.12h 01/13/19 [Rx] Patient Handouts: Vaginal Delivery, Care After, Care of a Perineal Tear, Steps to Quit Smoking Referrals: Mario Orr MD [Primary Care Provider] - (Follow-up for routine visit in 2-3 weeks or earlier as needed.) - Discharge Summary/Plan Comment DC Time >30 min.: No - Patient Data Vitals - Most Recent: Last Vital Signs Temp 36.8 C 01/13/19 02:15 Pulse 90 01/13/19 02:15 Resp 16 01/13/19 02:15 BP 101/62 01/13/19 02:15 Pulse Ox 98 01/13/19 02:15 Weight - Most Recent: 93.894 kg I&O - Last 24 hours: Intake & Output 01/12/19 01/13/19 01/13/19 22:59 06:59 14:59 Intake Total 320 Balance 320 Lab Results - Last 24 hrs: Laboratory Results - last 24 hr 01/12/19 Range/Units 06:17 Blood Type O NEGATIVE Gel Antibody Screen Positive Screen 0 ros/5 flds - neg RhIG Candidate? Yes Rhogam Indicated Yes, baby rh unknown H Med Orders - Current: Current Medications Acetaminophen (Tylenol) 650 mg PO Q6H PRN PRN Reason: mild pain or fever Last Admin: 01/13/19 05:26 Dose: 650 mg Benzocaine/Menthol (Dermoplast Pain Relief [facility]) 0 gm TOP ASDIRECTED PRN PRN Reason: Perineal Comfort Measure Last Admin: 01/11/19 23:46 Dose: 1 canister Docusate Sodium (Colace) 100 mg PO BID PRN PRN Reason: Constipation Emollient Ointment (Lansinoh Hpa) 0 gm TOP ASDIRECTED PRN PRN Reason: Sore Nipples Hydrocortisone Acetate (Anucort-Hc) 25 mg RECTAL BID PRN PRN Reason: Hemorrhoid pain Oxytocin/Lactated Ringer's (Pitocin In Lr 10 Units/1,000 Ml) 10 unit in 1,000 mls @ 100 mls/hr IV TITRATE LUZ; Protocol Ibuprofen (Motrin) 600 mg PO Q6H PRN PRN Reason: Mild pain or fever Last Admin: 01/13/19 08:12 Dose: 600 mg Magnesium Hydroxide (Milk Of Magnesia) 30 ml PO BEDTIME PRN PRN Reason: Constipation Prenat Multivit/[place]/Iron/Folic Ac ( Plus Iron) 1 each PO DAILY LUZ Last Admin: 01/13/19 08:12 Dose: 1 each Witch Daria (Tucks) 1 pad TOP ASDIRECTED PRN PRN Reason: Hemorrhoid pain Last Admin: 01/11/19 23:45 Dose: 1 tub Discontinued Medications Acetaminophen (Tylenol) 650 mg PO Q6H PRN PRN Reason: Pain (Mild 1-3) and fever Ampicillin Sodium (Ampicillin) Confirm Administered Dose 2 gm IV .STK-MED ONE Stop: 01/11/19 07:41 Last Admin: 01/12/19 01:33 Dose: Not Given Ampicillin Sodium (Ampicillin) Confirm Administered Dose 2 gm IV .STK-MED ONE Stop: 01/11/19 07:41 Last Admin: 01/12/19 01:33 Dose: Not Given Bupivacaine HCl (Sensorcaine-Mpf 0.25%) 10 ml .ROUTE .STK-MED ONE Stop: 01/11/19 22:01 Ephedrine Sulfate (Ephedrine Sulfate) 5 mg IVPUSH ASDIRECTED PRN PRN Reason: Hypotension Fentanyl (Sublimaze) 100 mcg EPIDUR Q3H PRN PRN Reason: Pain Last Admin: 01/11/19 13:29 Dose: 100 mcg Fentanyl/Bupivacaine HCl (Bzjbqmnd-Rblca-Qy 2 Mcg/Ml-0.125%) 100 ml EP ASDIRECTED LUZ Last Admin: 01/11/19 13:28 Dose: 100 ml Ampicillin Sodium 2 gm/ Sodium (Chloride) 100 mls @ 200 mls/hr IV ONETIME ONE Stop: 01/11/19 08:29 Last Admin: 01/11/19 07:50 Dose: 200 mls/hr Ampicillin Sodium 1 gm/ Sodium (Chloride) 100 mls @ 200 mls/hr IV Q4H LUZ Last Admin: 01/11/19 20:00 Dose: 200 mls/hr Lactated Ringer's (Ringers, Lactated) 1,000 mls @ 100 mls/hr IV ASDIRECTED LUZ Last Admin: 01/11/19 18:51 Dose: 100 mls/hr Oxytocin/Lactated Ringer's (Pitocin In Lr 10 Units/1,000 Ml) 10 unit in 1,000 mls @ 100 mls/hr IV .CONTINUOUS LUZ; Protocol Sodium Chloride (Normal Saline) Confirm Administered Dose 100 mls @ as directed .ROUTE .STK-MED ONE Stop: 01/11/19 07:42 Last Admin: 01/12/19 01:33 Dose: Not Given Phenylephrine HCl 1 mg/ Sodium (Chloride) 10.1 mls @ 1 mls/sec IV TITRATE LUZ; Protocol Oxytocin/Lactated Ringer's (Pitocin In Lr 10 Units/1,000 Ml) 10 unit in 1,000 mls @ 12 mls/hr IV TITRATE LUZ; Protocol Last Titration: 01/11/19 21:35 Dose: 500 munits/min, 3,000 mls/hr Lidocaine/Epinephrine (Xylocaine-Mpf 1.5% W/Epinephrine 1:200,000) 5 ml .ROUTE .STK-MED ONE Stop: 01/11/19 22:01 Misoprostol (Cytotec) Confirm Administered Dose 25 mcg .ROUTE .[place]-MED ONE Stop: 01/11/19 08:11 Last Admin: 01/11/19 08:14 Dose: 25 mcg Misoprostol (Cytotec) 25 mcg PO Q4H PRN PRN Reason: cervical ripening Nalbuphine HCl (Nubain) 10 mg IVPUSH Q2H PRN PRN Reason: pain Ondansetron HCl (Zofran) 4 mg IVPUSH Q4H PRN PRN Reason: Nausea/Vomiting Ondansetron HCl (Zofran) 4 mg IVPUSH ONETIME PRN PRN Reason: Nausea/Vomiting Sodium Chloride (Saline Flush) 10 ml FLUSH ASDIRECTED PRN PRN Reason: Keep Vein Open
== END 2019-01-13 11:40 | disposition home or self-care (01) | DRG 807 ==
LOC: PREINTOOBSV 05:39 → JD.OB 06:46 → OBSVTOIN 21:31 → JD.OB 21:31
PROVIDERS: ADMIT Obstetrics & Gynecology; ATTEND Obstetrics & Gynecology
PROC: 0U7C7ZZ Dilation of Cervix, Via Natural or Artificial Opening (ICD-10-PCS; principal; 2019-01-11)
PROC: 10D17Z9 Manual Extraction of Products of Conception, Retained, Via Natural or Artificial Opening (ICD-10-PCS; principal; 2019-01-11)
PROC: 10E0XZZ Delivery of Products of Conception, External Approach (ICD-10-PCS; principal; 2019-01-11)
PROC: 0UQMXZZ Repair Vulva, External Approach (ICD-10-PCS; principal; 2019-01-11)
PROC: 3E0P7VZ Introduction of Hormone into Female Reproductive, Via Natural or Artificial Opening (ICD-10-PCS; principal; 2019-01-11)
PROC: 10907ZC Drainage of Amniotic Fluid, Therapeutic from Products of Conception, Via Natural or Artificial Opening (ICD-10-PCS; principal; 2019-01-11)
PROC: 00HU33Z Insertion of Infusion Device into Spinal Canal, Percutaneous Approach (ICD-10-PCS; 2019-01-11)
PROC: 3E0R3BZ Introduction of Anesthetic Agent into Spinal Canal, Percutaneous Approach (ICD-10-PCS; 2019-01-11)
PROC: 3E0234Z Introduction of Serum, Toxoid and Vaccine into Muscle, Percutaneous Approach (ICD-10-PCS; 2019-01-12)
DX: O99.824 Streptococcus B carrier state complicating childbirth (principal); Z37.0 Single live birth; O70.0 First degree perineal laceration during delivery; O71.82 Other specified trauma to perineum and vulva; O73.1 Retained portions of placenta and membranes, without hemorrhage; Z3A.39 39 weeks gestation of pregnancy; O99.334 Smoking (tobacco) complicating childbirth; F17.210 Nicotine dependence, cigarettes, uncomplicated; O26.893 Other specified pregnancy related conditions, third trimester; Z67.41 Type O blood, Rh negative; O99.354 Diseases of the nervous system complicating childbirth; G89.29 Other chronic pain; O75.89 Other specified complications of labor and delivery; M54.9 Dorsalgia, unspecified; O99.62 Diseases of the digestive system complicating childbirth; K21.9 Gastro-esophageal reflux disease without esophagitis; Z88.8 Allergy status to other drugs, medicaments and biological substances; Z90.49 Acquired absence of other specified parts of digestive tract; Z86.19 Personal history of other infectious and parasitic diseases
CPT/HCPCS: 01967; 36415; 51702; 59025; 59409; 80306; 85025; 86592; A9270-GY; J0290; J2590; J2790; J3010; J3490; J7030; J7120

== ENCOUNTER 2019-07-26 10:10 | Inpatient (IN) | payer OTHER ==
[2019-07-26] MEDS ORDERED: Metoclopramide 10 MG/2 ML SDV IVPUSH ONE (10:43)
[2019-07-26] MEDS ORDERED: HYDROmorphone 0.5 MG/0.5 ML Syringe IVPUSH ONE ×2 (10:44→13:22)
[2019-07-26] MEDS ORDERED: Sodium Chloride 0.9% 1,000 ML IV SCH (10:45)
--- NOTE | 2019-07-26 10:48 | EDM.PDOC ---
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 Patient states that she is 3 para 2 with 2 normal vaginal deliveries. She was admitted to hospital July 11 with severe lower abdominal pain cramping and bleeding per vagina. Ultrasound identified a partial abruption of the placenta. Kept in hospital for 5 days and then enjoyed a week where the was no bleeding. 3 days ago she started having spotting of dark her older blood per vagina. This morning she woke around 0600 hrs. or earlier with severe lower bowel cramping pain and heavy bleeding per vagina. She soaked 2 pads so far this morning. She is extremely high risk . Currently rates the pain as 8 out of 10. Onset: Other (Spotting per vagina for the last 2 and half days. Heavy flow this morning. Associated severe wrote down cramping pain) Onset Date: 07/26/19 Onset Time: 05:30 Duration: Hour(s): Location: Reports: Abdomen (Suprapubic lower abdominal cramping pain characteristic of severe menstrual cramping.) Quality: Reports: Sharp, Stabbing, Other Severity: Moderate (Strong colicky pain) Improves with: Reports: None ( 8 out of 10) Worsens with: Reports: None Context: Denies: Activity, Exercise, Lifting, Sick Contact, Trauma, Other Associated Symptoms: Reports: Loss of Appetite. 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 (see below) (None) Lower Abdomen Pain Score (Numeric/FACES): 8 - Related Data Allergies Allergy/AdvReac Type Severity Reaction Status Date / Time metoclopramide [From Reglan] Allergy Anxiety Verified 07/26/19 10:25 Home Meds: Home Meds Vit with Ca/FA/Iron [ Plus Iron] 1 each PO DAILY tablet [Rx] Zolpidem Tartrate [Ambien] 10 mg PO BEDTIME PRN #30 tablet 06/22/19 [Rx] Past Medical History Gastrointestinal History: Reports: Other (See Below) Other Gastrointestinal History: history of C DIFF AND STOOL TRANSPLANT 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 Denies: Fever, Chills HEENT: Reports: No Symptoms Respiratory: Reports: No Symptoms Cardiovascular: Reports: No Symptoms Endocrine: Reports: Fatigue GI/Abdominal: Reports: Abdominal Pain (See history of present illness). Denies : Constipation, Distension : Reports: Frequency, Other (Suprapubic abdominal pain with heavy vaginal flow this morning) Musculoskeletal: Reports: Back Pain (Diffuse low back pain associate with the) Skin: Reports: No Symptoms ( cramping of the uterus) Neurological: Reports: No Symptoms Psychiatric: Reports: No Symptoms Hematologic/Lymphatic: Reports: No Symptoms Immunologic: Reports: No Symptoms ED EXAM - Physical Exam Exam: See Below Exam Limited By: No Limitations General Appearance: Alert, WD/WN, Moderate Distress (She is in obvious pain.: Up in the position right lateral decubitus position.) Eye Exam: Bilateral Eye: Normal Inspection (Mild pallor.) Throat/Mouth: Normal Inspection, Normal Lips, Normal Teeth, Normal Oropharynx Head: Atraumatic, Normocephalic Neck: Normal Inspection, Supple, Non-Tender, Full Range of Motion. No: Lymphadenopathy (L), Lymphadenopathy (R) Respiratory/Chest: No Respiratory Distress, Lungs Clear, Normal Breath Sounds, No Accessory Muscle Use Cardiovascular: Normal Peripheral Pulses, Regular Rate, Rhythm, No Edema, No Gallop, No Murmur, No Rub GI/Abdominal Exam: Tender (Fairly quiet sent bowel sounds), Abnormal Bowel Sounds, Other (Gravid uterus present it half way between the umbilicus and pubic sepsis compose 16 weeks gestation.) Fundal Height In cm: 16 (Female) Exam: Normal Bimanual Exam, Other (Bladder was full at the time of my exam. Extremities is closed. The blood only noted per vagina en bloc fingers. ). No: Adnexal Mass (L), Adnexal Mass (R) Heart Tones: Not Campbell Extremities: Normal Inspection, Normal Range of Motion, Non-Tender, No Pedal Edema Neurological: Alert, Oriented, CN II-XII Intact, Normal Cognition, Normal Gait Psychiatric: Anxious Skin Exam: Warm, Dry, Intact, Normal Color, No Rash Course - Vital Signs Last Recorded V/S: Last Vital Signs Temp 36.9 C 07/26/19 10:21 Pulse 99 07/26/19 10:21 Resp 15 07/26/19 10:21 BP 105/64 07/26/19 10:21 Pulse Ox 100 07/26/19 10:21 Orthostatic Blood Pressure [ 93/61 Standing] Orthostatic Blood Pressure [ 95/67 Sitting] Orthostatic Blood Pressure [ 90/61 Supine] - Orders/Labs/Meds Orders: Active Orders 24 hr Category Date Time Status Notify Provider Consults [RC] ASDIRECTED Care 07/26/19 12:29 Active Orthostatic Vital Signs [RC] ASDIRECTED Care 07/26/19 10:49 Active Consult to Physician [CONS] Stat Cons 07/26/19 12:28 Active TYPE AND SCREEN [BBK] Stat Lab 07/26/19 10:45 Results URINALYSIS W/MICROSCOPIC [UA W/MICROSCOPIC] [URIN] Stat Lab 07/26/19 10:45 Ordered Sodium Chloride 0.9% [Normal Saline] 1,000 ml Med 07/26/19 10:45 Active IV ASDIRECTED Medication Orders Sodium Chloride (Normal Saline) 1,000 mls @ 999 mls/hr IV ASDIRECTED LUZ Last Admin: 07/26/19 11:06 Dose: 999 mls/hr Labs: Laboratory Tests 07/26/19 07/26/19 07/26/19 Range/Units 10:45 10:45 10:45 WBC 9.38 (3.98-10.04) K/mm3 RBC 4.25 (3.98-5.22) M/mm3 Hgb 12.5 D (11.2-15.7) gm/L Hct 37.1 (34.1-44.9) % MCV 87.3 (79.4-94.8) fl MCH 29.4 (25.6-32.2) pg MCHC 33.7 (32.2-35.5) g/dl RDW Std Deviation 41.8 (36.4-46.3) fL Plt Count 270 (182-369) K/mm3 MPV 10.2 (9.4-12.3) fl Neutrophils % (Manual) 80 H (40-60) % Band Neutrophils % 0 (0-10) % Lymphocytes % (Manual) 15 L (20-40) % Atypical Lymphs % 0 % Monocytes % (Manual) 4 (2-10) % Eosinophils % (Manual) 0 L (0.7-5.8) % Basophils % (Manual) 1 (0.1-1.2) Platelet Estimate Adequate Plt Morphology Comment Normal RBC Morph Comment Normal PT 9.8 (9.7-12.0) SECONDS INR < 0.93 APTT 24 (22-31) SECONDS Sodium 139 (136-145) mEq/L Potassium 3.8 (3.5-5.1) mEq/L Chloride 108 H (98-107) mEq/L Carbon Dioxide 23 (21-32) mEq/L Anion Gap 11.8 (5-15) BUN 5 L (7-18) mg/dL Creatinine 0.5 L (0.55-1.02) mg/dL Est Cr Clr Drug Dosing 174.68 mL/min Estimated GFR (MDRD) > 60 (>60) mL/min BUN/Creatinine Ratio 10.0 L (14-18) Glucose 79 (74-106) mg/dL Calcium 8.7 (8.5-10.1) mg/dL Total Bilirubin 0.2 (0.2-1.0) mg/dL AST 10 L (15-37) U/L ALT 26 (14-59) U/L Alkaline Phosphatase 53 (46-116) U/L Total Protein 6.5 (6.4-8.2) g/dl Albumin 3.1 L (3.4-5.0) g/dl Globulin 3.4 gm/dL Albumin/Globulin Ratio 0.9 L (1-2) HCG, Quant mIU/mL Blood Type 07/26/19 07/26/19 Range/Units 10:45 10:45 WBC (3.98-10.04) K/mm3 RBC (3.98-5.22) M/mm3 Hgb (11.2-15.7) gm/L Hct (34.1-44.9) % MCV (79.4-94.8) fl MCH (25.6-32.2) pg MCHC (32.2-35.5) g/dl RDW Std Deviation (36.4-46.3) fL Plt Count (182-369) K/mm3 MPV (9.4-12.3) fl Neutrophils % (Manual) (40-60) % Band Neutrophils % (0-10) % Lymphocytes % (Manual) (20-40) % Atypical Lymphs % % Monocytes % (Manual) (2-10) % Eosinophils % (Manual) (0.7-5.8) % Basophils % (Manual) (0.1-1.2) Platelet Estimate Plt Morphology Comment RBC Morph Comment PT (9.7-12.0) SECONDS INR APTT (22-31) SECONDS Sodium (136-145) mEq/L Potassium (3.5-5.1) mEq/L Chloride (98-107) mEq/L Carbon Dioxide (21-32) mEq/L Anion Gap (5-15) BUN (7-18) mg/dL Creatinine (0.55-1.02) mg/dL Est Cr Clr Drug Dosing mL/min Estimated GFR (MDRD) (>60) mL/min BUN/Creatinine Ratio (14-18) Glucose (74-106) mg/dL Calcium (8.5-10.1) mg/dL Total Bilirubin (0.2-1.0) mg/dL AST (15-37) U/L ALT (14-59) U/L Alkaline Phosphatase (46-116) U/L Total Protein (6.4-8.2) g/dl Albumin (3.4-5.0) g/dl Globulin gm/dL Albumin/Globulin Ratio (1-2) HCG, Quant 35187.0 mIU/mL Blood Type O NEGATIVE Meds: Medications Generic Name Dose Route Start Last Admin Trade Name Lana PRN Reason Stop Dose Admin Sodium Chloride 1,000 mls @ 999 mls/hr 07/26/19 10:45 07/26/19 11:06 Normal Saline IV 999 mls/hr ASDIRECTED LUZ Administration Discontinued Medications Generic Name Dose Route Start Last Admin Trade Name Lana PRN Reason Stop Dose Admin Hydromorphone HCl 0.5 mg 07/26/19 10:44 07/26/19 11:06 Dilaudid IVPUSH 07/26/19 10:45 0.5 mg ONETIME ONE Administration Lorazepam 1 mg 07/26/19 12:22 Ativan IVPUSH 07/26/19 12:23 ONETIME ONE Metoclopramide HCl 7.5 mg 07/26/19 10:43 07/26/19 11:06 Reglan IVPUSH 07/26/19 10:44 7.5 mg ONETIME ONE Administration - Radiology Interpretation Free Text/Narrative:: 33-year-old female presents to the ED with severe lower abdominal cramping pain and heavy bleeding per vagina soaking 2 pads thus far this morning. Pain awoke from sleep she believes around 0 5:30 6:00 this morning. Of note she is 3 para 2 with 2 previous normal vaginal deliveries. She was admitted the hospital July 11 with heavy bleeding per vagina and abdominal cramping pain and identified a low partial abruption of the placenta. She was kept in hospital for 5 days bleeding stopped. She was discharged home and she enjoyed about a week where there was no bleeding per vagina. 2 days ago she started spotting per vagina and awoke with severe lower abdominal cramping pain and heavy flow this morning of fairly dark blood with no clots. She has soaked 2 pads thus far this morning. Is rated as 8 out of 10. Plan routine labs to be obtained. Orthostatics if we can get them. Type and screen to be done with routine labs. Beta hCG Quant as well. Ultrasound will be done abdominally to see if there is viability of the . I did discuss the case with Dr. 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 - Re-Assessments/Exams Free Text/Narrative Re-Assessment/Exam: 07/26/19 11:47 Labs reveal a normal white count at 9.3. 80% neutrophils no bands cells noted. Hemoglobin 12.5 with hematocrit of 37.1. Platelet count 270, 000. PT is 9.8 with an INR of less than 0.93. PTT is normal at 24. Sodium 139 with a potassium of 3.8. Chloride 108 with a bicarbonate of 23. And a gap is 11.8. BUNs 5 with a creatinine of 0.5. EGFR is greater than 60. Glucose is 79 with a calcium of 8.7. Liver function is normal. Total protein is 6.5 with a low albumin fraction of 3.1. Quantitative beta-hCG is pending 07/26/19 12:23 On my review of the abdominal ultrasound it reveals a heart beat at 1 50 bpm. However there is a very large abruption of the placenta I'm estimating 45-50%. She tells me that in [place] for the last ultrasounds were done it was about a 10% abruption. I have therefore asked Dr. Ramon to see her in consultation with the view to admission in the hospital at least for observation purposes. Patient states that she needs to drive back to [place] where she is from where other family members are available to her. 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 She has 2 young children with her. Sure she understands the complexity or the seriousness of the situation in terms that abrupt loss of the placenta from the lining of the uterus could cause her to bleed to . At this time she is very anxious. I will give her Ativan 1 mg IV. Note blood type is O+ and antibody gel screen is pending. The quantitative beta hCG was 18,410 07/26/19 12:33 radiology report is now available on this surgical ultrasound. An ultrasound with an estimated date of confinement of January 08, 2020. Gestational age is 16 weeks and 2 days. Patient placenta is left lateral with hypoechoic area noted in all retroplacental location on the left side showing internal echoes. This measures up to 11.0 cm in size and most likely represents an old abruption. More fluid appearing abnormally is seen which appears to be located next to the placenta which may represent a previous hematoma which is now liquefying. This finding measures 5.6 cm in greatest size. No findings of placenta previa are identified. Amniotic fluid is 9.32 cm. BPD is 3.32 cm which correlates with 16 weeks and 3 days. Impression single intrauterine fetus currently following presentation. Dates as noted above. Findings as noted above which is felt compatible with an old placental abruption. Additional lesion more fluid type collection is noted adjacent to the placenta which is most likely due to liquefying hematoma. No definite acute abruption is seen at this time. Of note there is no ultrasound for comparison purposes. I've spoken spoken with Dr. Ramon and she is attended the patient in the ED. The plan will be to admit her to the OB floor for observation at this this time Departure - Departure Time of Disposition: 12:35 Disposition: Refer to Observation Condition: Fair Clinical Impression: Second trimester , Placental abruption in second trimester, Threatened - Discharge Information *PRESCRIPTION DRUG MONITORING PROGRAM REVIEWED*: Not Applicable *COPY OF PRESCRIPTION DRUG MONITORING REPORT IN PATIENT SAMANTA: Not Applicable Instructions: Threatened Miscarriage, Abnormal Uterine Bleeding, Vaginal Bleeding During , Second Trimester, Placental Abruption Referrals: Mario Orr MD [Primary Care Provider] - Forms: ED Department Discharge - My Orders Last 24 Hours: My Active Orders 07/26/19 10:45 TYPE AND SCREEN [BBK] Stat URINALYSIS W/MICROSCOPIC [UA W/MICROSCOPIC] [URIN] Stat Sodium Chloride 0.9% [Normal Saline] 1,000 ml IV ASDIRECTED 07/26/19 10:49 Orthostatic Vital Signs [RC] ASDIRECTED 07/26/19 12:28 Consult to Physician [CONS] Stat 07/26/19 12:29 Notify Provider Consults [RC] ASDIRECTED - Assessment/Plan Last 24 Hours: My Active Orders 07/26/19 10:45 TYPE AND SCREEN [BBK] Stat URINALYSIS W/MICROSCOPIC [UA W/MICROSCOPIC] [URIN] Stat Sodium Chloride 0.9% [Normal Saline] 1,000 ml IV ASDIRECTED 07/26/19 10:49 Orthostatic Vital Signs [RC] ASDIRECTED 07/26/19 12:28 Consult to Physician [CONS] Stat 07/26/19 12:29 Notify Provider Consults [RC] ASDIRECTED
[2019-07-26] MEDS ORDERED: LORazepam 2 MG/ML SDV IVPUSH ONE (12:22)
--- NOTE | 2019-07-26 12:26 | US ---
Limited obstetrical ultrasound: Multiple real-time images were obtained. Comparison: No previous obstetrical imaging is available at this time. Dates: Current ultrasound: [facility] 01/08/20, gestational age 16 weeks 2 days presentation: Mobile Placenta: Left lateral; hypoechoic area is noted in a retroplacental location on the left side showing internal echoes. This measures up to 11.0 cm in size and most likely represents an old abruption. More fluid appearing abnormality is seen which appears to be located next to the placenta which may represent a previous hematoma which is liquefying. This finding measures 5.6 cm in greatest size. No findings of placenta previa are seen. Amniotic fluid: CECE of 9.32 cm Measurements: BPD: 3.32 cm -16 weeks 3 days Head circumference: 11.89 cm - 16 weeks 0 days Abdominal circumference: 9.88 cm - 8 weeks 0 days Femur length: 2.11 cm - 16 weeks 3 days Estimated weight: 145 g (0 lbs. 5 oz.), estimated weight at the 30th percentile for age by current ultrasound Heart rate: 150 BPM Cervical length: 4.2 cm Impression: 1. Single intrauterine fetus currently mobile in presentation. Dates as noted above. 2. Findings as noted above which is felt compatible with old placental abruption. Additional more fluid-type collection is noted adjacent to the placenta which is most likely due to liquefying hematoma. 3. No definite acute abruption is seen at this time. 4. No findings of placenta previa. Diagnostic code #3
--- NOTE | 2019-07-26 12:40 | PCM.LDHP ---
L&D History of Present Illness - General Date of Service: 07/26/19 Admit Problem/Dx: Admission Diagnosis/Problem Admission Diagnosis/Problem Source of Information: Patient, Other (ER provider and ER notes) - History of Present Illness Introduction:: 33 year old female at 16 weeks by her report consistent with ultrasound today. care with Dr. Orr and some in [place]. Previously admitted in [place] 2 weeks ago with what she describes as a 10% abruption. Was in house for 4 days there with bleeding. Reports her bleeding today is much less. Today prior to presentation began having pain and old dark bleeding. Has not had bleeding between today and discharge from there. Some cramping. Ultrasound today. Left lateral; hypoechoic area is noted in a retroplacental location on the left side showing internal echoes. This measures up to 11.0 cm in size and most likely represents an old abruption. More fluid appearing abnormality is seen which appears to be located next to the placenta which may represent a previous hematoma which is liquefying. This finding measures 5.6 cm in greatest size. No findings of placenta previa are seen. Amniotic fluid: CECE of 9.32 cm Measurements: BPD: 3.32 cm -16 weeks 3 days Head circumference: 11.89 cm - 16 weeks 0 days Abdominal circumference: 9.88 cm - 8 weeks 0 days Femur length: 2.11 cm - 16 weeks 3 days Estimated weight: 145 g (0 lbs. 5 oz.), estimated weight at the 30th percentile for age by current ultrasound Heart rate: 150 BPM Cervical length: 4.2 cm Impression: 1. Single intrauterine fetus currently mobile in presentation. Dates as noted above. 2. Findings as noted above which is felt compatible with old placental abruption. Additional more fluid-type collection is noted adjacent to the placenta which is most likely due to liquefying hematoma. 3. No definite acute abruption is seen at this time. 4. No findings of placenta previa. 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) Musculoskeletal Surgical History: Reports: Other (See Below) (Right hip surgery for muscular tear11/2012) Social & Family History - Family History Family Medical History: Noncontributory - Tobacco Use Smoking Status *Q: Former Smoker Used Tobacco, but Quit: Yes Month/Year Tobacco Last Used: 1 month ago - Caffeine Use Caffeine Use: Reports: None - Recreational Drug Use Recreational Drug Use: No - Living Situation & Occupation Living situation: Reports: Single, with Significant Other H&P Review of Systems - Review of Systems: Review Of Systems: See Below General: Reports: No Symptoms HEENT: Reports: No Symptoms Pulmonary: Reports: No Symptoms Cardiovascular: Reports: No Symptoms Gastrointestinal: Reports: No Symptoms Genitourinary: Reports: Other (see HPI) Musculoskeletal: Reports: No Symptoms Skin: Reports: No Symptoms Psychiatric: Reports: No Symptoms Neurological: Reports: No Symptoms Hematologic/Lymphatic: Reports: No Symptoms Immunologic: Reports: No Symptoms L&D Exam - Exam Exam: See Below - Vital Signs Vital Signs: Last Vital Signs Temp 36.9 C 07/26/19 10:21 Pulse 99 07/26/19 10:21 Resp 15 07/26/19 10:21 BP 105/64 07/26/19 10:21 Pulse Ox 100 07/26/19 10:21 Orthostatic Blood Pressure [ 93/61 Standing] Orthostatic Blood Pressure [ 95/67 Sitting] Orthostatic Blood Pressure [ 90/61 Supine] Weight: 82.554 kg - OB Specific Fundal Height In cm: 16 Heart Tones: Not Cottle - Exam General: Alert, Oriented HEENT: PERRLA, Conjunctiva Clear, EACs Clear, EOMI, Hearing Intact, Mucosa Moist & Tull, Nares Patent, Normal Nasal Septum, Posterior Pharynx Clear, TMs Clear Neck: Supple, Trachea Midline Lungs: Clear to Auscultation, Normal Respiratory Effort Cardiovascular: Regular Rate, Regular Rhythm GI/Abdominal Exam: Normal Bowel Sounds, Soft, Non-Tender, No Organomegaly, No Distention, No Abnormal Bruit, No Mass, Pelvis Stable Genitourinary: Normal external exam, Normal bimanual exam, Normal speculum exam Back Exam: Normal Inspection, Full Range of Motion Extremities: Normal Inspection, Normal Range of Motion, Non-Tender, No Pedal Edema, Normal Capillary Refill Neurological: Cranial Nerves Intact, Reflexes Equal Bilateral Psychiatric: Alert, Normal Affect, Normal Mood - Patient Data Lab Results Last 24 hrs: Laboratory Results - last 24 hr 07/26/19 07/26/19 07/26/19 Range/Units 10:45 10:45 10:45 WBC 9.38 (3.98-10.04) K/mm3 RBC 4.25 (3.98-5.22) M/mm3 Hgb 12.5 D (11.2-15.7) gm/L Hct 37.1 (34.1-44.9) % MCV 87.3 (79.4-94.8) fl MCH 29.4 (25.6-32.2) pg MCHC 33.7 (32.2-35.5) g/dl RDW Std Deviation 41.8 (36.4-46.3) fL Plt Count 270 (182-369) K/mm3 MPV 10.2 (9.4-12.3) fl Neutrophils % (Manual) 80 H (40-60) % Band Neutrophils % 0 (0-10) % Lymphocytes % (Manual) 15 L (20-40) % Atypical Lymphs % 0 % Monocytes % (Manual) 4 (2-10) % Eosinophils % (Manual) 0 L (0.7-5.8) % Basophils % (Manual) 1 (0.1-1.2) Platelet Estimate Adequate Plt Morphology Comment Normal RBC Morph Comment Normal PT 9.8 (9.7-12.0) SECONDS INR < 0.93 APTT 24 (22-31) SECONDS Sodium 139 (136-145) mEq/L Potassium 3.8 (3.5-5.1) mEq/L Chloride 108 H (98-107) mEq/L Carbon Dioxide 23 (21-32) mEq/L Anion Gap 11.8 (5-15) BUN 5 L (7-18) mg/dL Creatinine 0.5 L (0.55-1.02) mg/dL Est Cr Clr Drug Dosing 174.68 mL/min Estimated GFR (MDRD) > 60 (>60) mL/min BUN/Creatinine Ratio 10.0 L (14-18) Glucose 79 (74-106) mg/dL Calcium 8.7 (8.5-10.1) mg/dL Total Bilirubin 0.2 (0.2-1.0) mg/dL AST 10 L (15-37) U/L ALT 26 (14-59) U/L Alkaline Phosphatase 53 (46-116) U/L Total Protein 6.5 (6.4-8.2) g/dl Albumin 3.1 L (3.4-5.0) g/dl Globulin 3.4 gm/dL Albumin/Globulin Ratio 0.9 L (1-2) HCG, Quant mIU/mL Blood Type 07/26/19 07/26/19 Range/Units 10:45 10:45 WBC (3.98-10.04) K/mm3 RBC (3.98-5.22) M/mm3 Hgb (11.2-15.7) gm/L Hct (34.1-44.9) % MCV (79.4-94.8) fl MCH (25.6-32.2) pg MCHC (32.2-35.5) g/dl RDW Std Deviation (36.4-46.3) fL Plt Count (182-369) K/mm3 MPV (9.4-12.3) fl Neutrophils % (Manual) (40-60) % Band Neutrophils % (0-10) % Lymphocytes % (Manual) (20-40) % Atypical Lymphs % % Monocytes % (Manual) (2-10) % Eosinophils % (Manual) (0.7-5.8) % Basophils % (Manual) (0.1-1.2) Platelet Estimate Plt Morphology Comment RBC Morph Comment PT (9.7-12.0) SECONDS INR APTT (22-31) SECONDS Sodium (136-145) mEq/L Potassium (3.5-5.1) mEq/L Chloride (98-107) mEq/L Carbon Dioxide (21-32) mEq/L Anion Gap (5-15) BUN (7-18) mg/dL Creatinine (0.55-1.02) mg/dL Est Cr Clr Drug Dosing mL/min Estimated GFR (MDRD) (>60) mL/min BUN/Creatinine Ratio (14-18) Glucose (74-106) mg/dL Calcium (8.5-10.1) mg/dL Total Bilirubin (0.2-1.0) mg/dL AST (15-37) U/L ALT (14-59) U/L Alkaline Phosphatase (46-116) U/L Total Protein (6.4-8.2) g/dl Albumin (3.4-5.0) g/dl Globulin gm/dL Albumin/Globulin Ratio (1-2) HCG, Quant 35330.0 mIU/mL Blood Type O NEGATIVE Result Diagrams: 07/26/19 10:45 07/26/19 10:45 Problem List Initiated/Reviewed/Updated: Yes Orders Last 24hrs: Active Orders 24 hr Category Date Time Status Notify Provider Consults [RC] ASDIRECTED Care 07/26/19 12:29 Active Orthostatic Vital Signs [RC] ASDIRECTED Care 07/26/19 10:49 Active Consult to Physician [CONS] Stat Cons 07/26/19 12:28 Active TYPE AND SCREEN [BBK] Stat Lab 07/26/19 10:45 Results URINALYSIS W/MICROSCOPIC [UA W/MICROSCOPIC] [URIN] Stat Lab 07/26/19 10:45 Ordered Sodium Chloride 0.9% [Normal Saline] 1,000 ml Med 07/26/19 10:45 Active IV ASDIRECTED Medication Orders Sodium Chloride (Normal Saline) 1,000 mls @ 999 mls/hr IV ASDIRECTED LUZ Last Admin: 07/26/19 11:06 Dose: 999 mls/hr Assessment/Plan Comment:: 33 year old with partial abruption at 16 week. Minimal bleeding now. Tearful. Will admit to observation. Rhogam workup to ensure doesn't need additional dose today. Requests medication for anxiety and sleep. Monitor closely.
[2019-07-26] MEDS ORDERED: Docusate Sodium 100 MG Cap PO PRN (12:46)
[2019-07-26] MEDS ORDERED: LORazepam 2 MG/ML SDV IVPUSH PRN (12:49)
[2019-07-26] MEDS: Acetaminophen/oxyCODONE 325-5 MG Tab PO PRN ×3 (14:56→23:22)
[2019-07-26] MEDS: Ondansetron 4 MG/2 ML SDV IV PRN ×2 (18:31→23:20)
[2019-07-26] MEDS: HYDROmorphone 0.5 MG/0.5 ML Syringe IVPUSH PRN (18:34)
[2019-07-26] MEDS: Zolpidem 5 MG Tab PO SCH (20:44)
[2019-07-27] MEDS: Ondansetron 4 MG/2 ML SDV IV PRN ×2 (03:24→07:52)
[2019-07-27] MEDS: Acetaminophen/oxyCODONE 325-5 MG Tab PO PRN ×5 (03:26→20:38)
[2019-07-27] MEDS: Prenatal Multivitamin with Calcium/Folic Acid/Iron Tab PO SCH ×2 (07:55→08:06)
[2019-07-27] MEDS: HYDROmorphone 0.5 MG/0.5 ML Syringe IVPUSH PRN ×2 (09:24→18:15)
[2019-07-27] MEDS ORDERED: Promethazine 12.5 MG in Sodium Chloride 0.9% 50 ML IV PRN (10:16)
--- NOTE | 2019-07-27 10:20 | PCM.SN ---
- Free Text/Narrative Note: Antepartum Progress Note Subjective: Hospital day #2 David Brewer is a 33 year old female at 16 weeks 1 days ([facility] 2019) with placental abruption in the setting of low lying placenta. Patient reports that her pain has continued throughout the night. She had increased amount of pain this morning where she would have pain that starts in her low pelvis and what to go up and around to her back. She had taken Percocet that did not help with pain this morning. It had been working throughout the day and night overnight. She reports that she has had a small amount of brown vaginal bleeding onto her pad overnight. She reports increased amounts of nausea and vomiting after she took her vitamin this morning. She reports that she was having minimal nausea throughout the night last night. She denies any fevers or chills. She feels that she is feeling baby move at this time. Objective: Vital Signs - 24 hr 07/26/19 07/26/19 07/27/19 13:30 20:42 03:20 Temperature 37.1 C 37.0 C 37.2 C Pulse, 77 65 75 Peripheral Respiratory 14 17 15 Rate Blood Pressure 81/53 L 89/48 L 85/46 L O2 Sat by Pulse 100 98 96 Oximetry 07/27/19 07:59 Temperature 37.2 C Pulse, 75 Peripheral Respiratory 18 Rate Blood Pressure 100/72 O2 Sat by Pulse 97 Oximetry Physical exam: General Appearance: Mild distress, alert and oriented Respiratory: Clear to auscultation bilaterally Cardiovascular: Regular rate and rhythm Gastrointestinal: Mild uterine tenderness, no abdominal tenderness or distention , no bloating Extremities: No edema noted in lower extremities bilaterally FHTs: 120s Laboratory Tests 07/26/19 07/26/19 07/26/19 Range/Units 10:45 10:45 10:45 WBC 9.38 (3.98-10.04) K/mm3 RBC 4.25 (3.98-5.22) M/mm3 Hgb 12.5 D (11.2-15.7) gm/L Hct 37.1 (34.1-44.9) % MCV 87.3 (79.4-94.8) fl MCH 29.4 (25.6-32.2) pg MCHC 33.7 (32.2-35.5) g/dl RDW Std Deviation 41.8 (36.4-46.3) fL Plt Count 270 (182-369) K/mm3 MPV 10.2 (9.4-12.3) fl Neutrophils % (Manual) 80 H (40-60) % Band Neutrophils % 0 (0-10) % Lymphocytes % (Manual) 15 L (20-40) % Atypical Lymphs % 0 % Monocytes % (Manual) 4 (2-10) % Eosinophils % (Manual) 0 L (0.7-5.8) % Basophils % (Manual) 1 (0.1-1.2) Platelet Estimate Adequate Plt Morphology Comment Normal RBC Morph Comment Normal PT 9.8 (9.7-12.0) SECONDS INR < 0.93 APTT 24 (22-31) SECONDS Sodium 139 (136-145) mEq/L Potassium 3.8 (3.5-5.1) mEq/L Chloride 108 H (98-107) mEq/L Carbon Dioxide 23 (21-32) mEq/L Anion Gap 11.8 (5-15) BUN 5 L (7-18) mg/dL Creatinine 0.5 L (0.55-1.02) mg/dL Est Cr Clr Drug Dosing 174.68 mL/min Estimated GFR (MDRD) > 60 (>60) mL/min BUN/Creatinine Ratio 10.0 L (14-18) Glucose 79 (74-106) mg/dL Calcium 8.7 (8.5-10.1) mg/dL Total Bilirubin 0.2 (0.2-1.0) mg/dL AST 10 L (15-37) U/L ALT 26 (14-59) U/L Alkaline Phosphatase 53 (46-116) U/L Total Protein 6.5 (6.4-8.2) g/dl Albumin 3.1 L (3.4-5.0) g/dl Globulin 3.4 gm/dL Albumin/Globulin Ratio 0.9 L (1-2) HCG, Quant mIU/mL Urine Color (Yellow) Urine Appearance (Clear) Urine pH (5.0-8.0) Ur Specific [place] (1.005-1.030) Urine Protein (Negative) Urine Glucose (UA) (Negative) Urine Ketones (Negative) Urine Occult Blood (Negative) Urine Nitrite (Negative) Urine Bilirubin (Negative) Urine Urobilinogen (0.2-1.0) Ur Leukocyte Esterase (Negative) Urine RBC (0-5) /hpf Urine WBC (0-5) /hpf Ur Epithelial Cells (0-5) /hpf Urine Bacteria (FEW) /hpf Urine Mucus (FEW) /hpf RPR (NONREACTIVE) Blood Type Gel Antibody Screen 07/26/19 07/26/19 07/26/19 Range/Units 10:45 10:45 10:45 WBC (3.98-10.04) K/mm3 RBC (3.98-5.22) M/mm3 Hgb (11.2-15.7) gm/L Hct (34.1-44.9) % MCV (79.4-94.8) fl MCH (25.6-32.2) pg MCHC (32.2-35.5) g/dl RDW Std Deviation (36.4-46.3) fL Plt Count (182-369) K/mm3 MPV (9.4-12.3) fl Neutrophils % (Manual) (40-60) % Band Neutrophils % (0-10) % Lymphocytes % (Manual) (20-40) % Atypical Lymphs % % Monocytes % (Manual) (2-10) % Eosinophils % (Manual) (0.7-5.8) % Basophils % (Manual) (0.1-1.2) Platelet Estimate Plt Morphology Comment RBC Morph Comment PT (9.7-12.0) SECONDS INR APTT (22-31) SECONDS Sodium (136-145) mEq/L Potassium (3.5-5.1) mEq/L Chloride (98-107) mEq/L Carbon Dioxide (21-32) mEq/L Anion Gap (5-15) BUN (7-18) mg/dL Creatinine (0.55-1.02) mg/dL Est Cr Clr Drug Dosing mL/min Estimated GFR (MDRD) (>60) mL/min BUN/Creatinine Ratio (14-18) Glucose (74-106) mg/dL Calcium (8.5-10.1) mg/dL Total Bilirubin (0.2-1.0) mg/dL AST (15-37) U/L ALT (14-59) U/L Alkaline Phosphatase (46-116) U/L Total Protein (6.4-8.2) g/dl Albumin (3.4-5.0) g/dl Globulin gm/dL Albumin/Globulin Ratio (1-2) HCG, Quant 44799.0 mIU/mL Urine Color (Yellow) Urine Appearance (Clear) Urine pH (5.0-8.0) Ur Specific [place] (1.005-1.030) Urine Protein (Negative) Urine Glucose (UA) (Negative) Urine Ketones (Negative) Urine Occult Blood (Negative) Urine Nitrite (Negative) Urine Bilirubin (Negative) Urine Urobilinogen (0.2-1.0) Ur Leukocyte Esterase (Negative) Urine RBC (0-5) /hpf Urine WBC (0-5) /hpf Ur Epithelial Cells (0-5) /hpf Urine Bacteria (FEW) /hpf Urine Mucus (FEW) /hpf RPR Non-reactive (NONREACTIVE) Blood Type O NEGATIVE Gel Antibody Screen Positive 07/26/19 07/27/19 Range/Units 12:40 05:38 WBC 6.81 (3.98-10.04) K/mm3 RBC 3.86 L (3.98-5.22) M/mm3 Hgb 11.5 (11.2-15.7) gm/L Hct 34.1 (34.1-44.9) % MCV 88.3 (79.4-94.8) fl MCH 29.8 (25.6-32.2) pg MCHC 33.7 (32.2-35.5) g/dl RDW Std Deviation 41.9 (36.4-46.3) fL Plt Count 235 (182-369) K/mm3 MPV 10.0 (9.4-12.3) fl Neutrophils % (Manual) (40-60) % Band Neutrophils % (0-10) % Lymphocytes % (Manual) (20-40) % Atypical Lymphs % % Monocytes % (Manual) (2-10) % Eosinophils % (Manual) (0.7-5.8) % Basophils % (Manual) (0.1-1.2) Platelet Estimate Plt Morphology Comment RBC Morph Comment PT (9.7-12.0) SECONDS INR APTT (22-31) SECONDS Sodium (136-145) mEq/L Potassium (3.5-5.1) mEq/L Chloride (98-107) mEq/L Carbon Dioxide (21-32) mEq/L Anion Gap (5-15) BUN (7-18) mg/dL Creatinine (0.55-1.02) mg/dL Est Cr Clr Drug Dosing mL/min Estimated GFR (MDRD) (>60) mL/min BUN/Creatinine Ratio (14-18) Glucose (74-106) mg/dL Calcium (8.5-10.1) mg/dL Total Bilirubin (0.2-1.0) mg/dL AST (15-37) U/L ALT (14-59) U/L Alkaline Phosphatase (46-116) U/L Total Protein (6.4-8.2) g/dl Albumin (3.4-5.0) g/dl Globulin gm/dL Albumin/Globulin Ratio (1-2) HCG, Quant mIU/mL Urine Color Yellow (Yellow) Urine Appearance Clear (Clear) Urine pH 6.5 (5.0-8.0) Ur Specific [place] 1.015 (1.005-1.030) Urine Protein Negative (Negative) Urine Glucose (UA) Negative (Negative) Urine Ketones Negative (Negative) Urine Occult Blood Trace-lysed H (Negative) Urine Nitrite Negative (Negative) Urine Bilirubin Negative (Negative) Urine Urobilinogen 0.2 (0.2-1.0) Ur Leukocyte Esterase Negative (Negative) Urine RBC 0-5 (0-5) /hpf Urine WBC 0-5 (0-5) /hpf Ur Epithelial Cells 0-5 (0-5) /hpf Urine Bacteria Rare (FEW) /hpf Urine Mucus Not seen (FEW) /hpf RPR (NONREACTIVE) Blood Type Gel Antibody Screen Growth Ultrasound: (07/26/2019) Single intrauterine fetus, mobile presentation, 16 weeks 2 days, EFW 145 g (5 ounces) (32 percentile), left lateral placenta with hypoechoic area retroplacental location measuring up to 11 cm, no placenta previa, CECE 9.32 cm, FHR 150 bpm, cervix length 4.2 cm Assessment: David Brewer is a 33 year old female at 16 weeks 1 days ([facility] 2019) with placental abruption in the setting of low lying placenta. Patient with ongoing pain requiring IV medication Patient with O- blood and has received RhoGAM with initial placental abruption Plan: * Expectant management. We will continue to monitor patient's symptoms and monitor for additional bleeding and pain. Patient is at a previable state and infant would not survive at this time if delivered. We will continue to keep patient comfortable with pain medication and nausea medication as needed. * heart tones present and normal. Continue to monitor throughout the day for heart tones. * Patient with O- blood and has already received RhoGAM with the initial placental abruption about 2 weeks ago. Her antibody screen on this visit was positive which is likely due to previous RhoGAM administration. * Patient reports that she is planning to move to [place] after discharge so that she can have increased amounts of assistance from family as she does not have any family or friends in the local area. * Patient with increased amounts of nausea and vomiting after her vitamin. We will transition from vitamin to folic acid 1 mg daily to see if this can help with her nausea while she is in the hospital. She reports that her nausea with her home vitamin is minimal. We will also add Phenergan 12.5 mg IV every 6 hours as needed for nausea and vomiting. * Anticipate discharge home once patient's symptoms have resolved. Will reassess this afternoon. Mario Orr M.D. 11:18 AM 07/27/2019
[2019-07-27] MEDS: Zolpidem 5 MG Tab PO SCH (21:39)
[2019-07-28] MEDS: Acetaminophen/oxyCODONE 325-5 MG Tab PO PRN ×3 (01:07→09:29)
[2019-07-28] MEDS: Ondansetron 4 MG/2 ML SDV IV PRN (06:15)
--- NOTE | 2019-07-28 08:12 | PCM.SN ---
- Free Text/Narrative Note: Antepartum Progress Note Subjective: Hospital day #3 David Brewer is a 33 year old female at 16 weeks 2 days ([facility] 2019) with vaginal bleeding with placental abruption in the setting of low lying placenta. Patient reports that her pain has continued throughout the night. She has taken Percocet that has been helping with her pain. She describes the pain as a mild cramping with occasional sharp pain. She reports that she has had a small amount of brown vaginal bleeding onto her pad overnight. She reports minimal nausea overnight but it was able to be controlled with Zofran. She denies any fevers or chills. She feels that she is feeling baby move at this time. Objective: Vital Signs - 24 hr 07/27/19 07/27/19 07/27/19 16:17 20:26 20:30 Temperature 36.4 C Temperature [ 37.0 C Oral] Pulse, 79 68 Peripheral Respiratory 15 14 Rate Blood Pressure 93/52 L 108/75 O2 Sat by Pulse 97 97 Oximetry 07/28/19 04:26 Temperature 37.1 C Temperature [ Oral] Pulse, 84 Peripheral Respiratory 14 Rate Blood Pressure 84/60 L O2 Sat by Pulse 100 Oximetry Physical exam: General Appearance: No distress, alert and oriented Respiratory: Clear to auscultation bilaterally Cardiovascular: Regular rate and rhythm Gastrointestinal: Mild uterine tenderness, no abdominal tenderness or distention , no bloating, normal bowel sounds Pelvic: Several small spots of brown blood on maryam-pad, no active bleeding Extremities: No edema noted in lower extremities bilaterally FHTs: 140s Growth Ultrasound: (07/26/2019) Single intrauterine fetus, mobile presentation, 16 weeks 2 days, EFW 145 g (5 ounces) (32 percentile), left lateral placenta with hypoechoic area retroplacental location measuring up to 11 cm, no placenta previa, CECE 9.32 cm, FHR 150 bpm, cervix length 4.2 cm Assessment: David Brewer is a 33 year old female at 16 weeks 2 days ([facility] 2019) with vaginal bleeding with a placental abruption in the setting of low lying placenta. Patient with O- blood and has received RhoGAM with initial placental abruption on 07/10/2019. Plan: * Expectant management. No additional active bleeding, only small amount of old blood. Patient is at a previable state and would not survive at this time if delivered. * heart tones present and normal. * Patient with O- blood and has already received RhoGAM with the initial placental abruption about 2 weeks ago. Her antibody screen on this visit was positive which is likely due to previous RhoGAM administration. * Patient reports that she is planning to move to [place] after discharge so that she can have increased amounts of assistance from family as she does not have any family or friends in the local area. * Patient with minimal nausea at this time. Patient to continue with Zofran 4 mg ODT as needed for nausea after discharge. * Discharge home today as patient having pain able to be controlled with oral medications overnight. Mario Orr M.D. 8:18 AM 07/28/2019
--- NOTE | 2019-07-28 08:41 | PCM.DCSUM1 ---
Discharge Summary - Hospital Course Free Text/Narrative:: 33 year old female at 16 weeks by her report consistent with ultrasound today. care with Dr. Orr and some in [place]. Previously admitted in [place] 2 weeks ago with what she describes as a 10% abruption. Was in house for 4 days there with bleeding. Reports her bleeding today is much less. Today prior to presentation began having pain and old dark bleeding. Has not had bleeding between today and discharge from there. Some cramping. HPI Initial Comments: 33 year old female at 16 weeks by her report consistent with ultrasound today. care with Dr. Orr and some in [place]. Previously admitted in [place] 2 weeks ago with what she describes as a 10% abruption. Was in house for 4 days there with bleeding. Reports her bleeding today is much less. Today prior to presentation began having pain and old dark bleeding. Has not had bleeding between today and discharge from there. Some cramping. Brief History: 33 year old female at 16 weeks by her report consistent with ultrasound today. care with Dr. Orr and some in [place]. Previously admitted in [place] 2 weeks ago with what she describes as a 10% abruption. Was in house for 4 days there with bleeding. Reports her bleeding today is much less. Today prior to presentation began having pain and old dark bleeding. Has not had bleeding between today and discharge from there. Some cramping. Diagnosis: Stroke: No - Discharge Data Discharge Date: 07/28/19 Discharge Disposition: Home, Self-Care 01 Condition: Good - Discharge Diagnosis/Problem(s) (1) Placental abruption in second trimester SNOMED Code(s): 500576803 ICD Code: O45.92 - PREMATURE SEPARATION OF PLACENTA, UNSP, SECOND TRIMESTER Status: Acute Current Visit: Yes (2) Second trimester SNOMED Code(s): 30447342 ICD Code: Z34.92 - ENCNTR FOR SUPRVSN OF NORMAL PREG, UNSP, SECOND TRIMESTER Status: Acute Current Visit: Yes (3) Threatened SNOMED Code(s): 09332202 ICD Code: O20.0 - THREATENED Status: Acute Current Visit: Yes - Patient Summary/Data Complications: None Consults: Consultations 07/26/19 12:28 Consult to Physician [CONS] Stat Hospital Course: Patient admitted after having increased amounts of vaginal bleeding from known placental abruption. She had presented to the emergency department with additional bleeding. She is having significant pain. They had an ultrasound performed that showed presence of the placental abruption on the left lateral side of the uterus and placenta. The was growing appropriately. Patient was monitored overnight and required oral and IV pain medication to control her pain. She was given Ambien to help with sleep. Patient was also having increased amounts of nausea and vomiting and was given Zofran. In the morning of hospital day #2 she was having increased amounts of nausea and vomiting and was started on Phenergan IV. She required several additional doses of IV pain medication in the morning of hospital day #2. Throughout the day of hospital day #2 her vaginal bleeding was minimal and was only having small spots on her pad. With the bleeding that she was having she was having small amount of brown bleeding on her pad. She continued to have small amount of pain throughout the day on hospital day #2 and into hospital day #3. Her pain was able to be controlled with oral medications in the morning of hospital day #3. She had minimal amount of brown spotting on her pad in the morning of hospital day #3. She desired to be discharged home in the morning of hospital day #3. - Patient Instructions Diet: Regular Diet as Tolerated Activity: Apply Ice, As Tolerated, No Lifting Over 25 Pounds Activity, Other: Pelvic rest Driving: Do Not Drive (while on narcotic medications or having signficant pain) Showering/Bathing: May Shower Notify Provider of: Fever, Increased Pain, Swelling and Redness, Nausea and/or Vomiting Other/Special Instructions: Please go to a medical facility if you have heavy vaginal bleeding enough to soak a pad in less than an hour. - Discharge Plan *PRESCRIPTION DRUG MONITORING PROGRAM REVIEWED*: Yes *COPY OF PRESCRIPTION DRUG MONITORING REPORT IN PATIENT SAMANTA: Not Applicable ( No previous narcotic prescriptions.) Prescriptions/Med Rec: Acetaminophen/oxyCODONE [Percocet 325-5 MG] 1 - 2 tab PO Q4H PRN #20 tablet PRN Reason: Pain Home Medications: Home Meds Vit with Ca/FA/Iron [ Plus Iron] 1 each PO DAILY tablet [Rx] Zolpidem Tartrate [Ambien] 10 mg PO BEDTIME PRN #30 tablet 06/22/19 [Rx] Acetaminophen/oxyCODONE [Percocet 325-5 MG] 1 - 2 tab PO Q4H PRN #20 tablet 03/12 [Rx] Docusate Sodium [Colace] 100 mg PO Q12H PRN cap 07/28/19 [Rx] Patient Handouts: Threatened Miscarriage, Abnormal Uterine Bleeding, Vaginal Bleeding During , Second Trimester, Placental Abruption Forms: ED Department Discharge Referrals: Mairo Orr MD [Primary Care Provider] - - Discharge Summary/Plan Comment DC Time >30 min.: No - Patient Data Vitals - Most Recent: Last Vital Signs Temp 37.1 C 07/28/19 04:26 Pulse 84 07/28/19 04:26 Resp 14 07/28/19 04:26 BP 84/60 L 07/28/19 04:26 Pulse Ox 100 07/28/19 04:26 Orthostatic Blood Pressure [ 93/61 Standing] Orthostatic Blood Pressure [ 95/67 Sitting] Orthostatic Blood Pressure [ 90/61 Supine] Weight - Most Recent: 82.554 kg I&O - Last 24 hours: Intake & Output 07/27/19 07/28/19 07/28/19 22:59 06:59 14:59 Intake Total 240 1000 Balance 240 1000 Med Orders - Current: Current Medications Docusate Sodium (Colace) 100 mg PO Q12H PRN PRN Reason: Constipation Folic Acid (Folic Acid) 1 mg PO DAILY [facility] Hydromorphone HCl (Dilaudid) 0.5 mg IVPUSH Q2H PRN PRN Reason: Pain Last Admin: 07/27/19 18:15 Dose: 0.5 mg Sodium Chloride (Normal Saline) 1,000 mls @ 999 mls/hr IV ASDIRECTED LUZ Last Admin: 07/26/19 11:06 Dose: 999 mls/hr Promethazine HCl 12.5 mg/ (Sodium Chloride) 50.5 mls @ 100 mls/hr IV Q6H PRN PRN Reason: Nausea/Vomiting Last Admin: 07/27/19 10:54 Dose: 100 mls/hr Lorazepam (Ativan) 1 mg IVPUSH Q6H PRN PRN Reason: Anxiety Ondansetron HCl (Zofran) 4 mg IV Q4H PRN PRN Reason: Nausea/Vomiting Last Admin: 07/28/19 06:15 Dose: 4 mg Oxycodone/Acetaminophen (Percocet 325-5 Mg) 2 tab PO Q4H PRN PRN Reason: Pain Last Admin: 07/28/19 05:23 Dose: 2 tab Zolpidem Tartrate (Ambien) 5 mg PO BEDTIME [facility] Last Admin: 07/27/19 21:39 Dose: 5 mg Discontinued Medications Hydromorphone HCl (Dilaudid) 0.5 mg IVPUSH ONETIME ONE Stop: 07/26/19 10:45 Last Admin: 07/26/19 11:06 Dose: 0.5 mg Hydromorphone HCl (Dilaudid) 0.5 mg IVPUSH ONETIME ONE Stop: 07/26/19 13:23 Last Admin: 07/26/19 13:44 Dose: 0.5 mg Lorazepam (Ativan) 1 mg IVPUSH ONETIME ONE Stop: 07/26/19 12:23 Last Admin: 07/26/19 12:37 Dose: 1 mg Metoclopramide HCl (Reglan) 7.5 mg IVPUSH ONETIME ONE Stop: 07/26/19 10:44 Last Admin: 07/26/19 11:06 Dose: 7.5 mg Prenat Multivit/[employer]/Iron/Folic Ac ( Plus Iron) 1 each PO DAILY [facility] Last Admin: 07/27/19 08:06 Dose: Not Given
[2019-07-28] MEDS ORDERED: Folic Acid 1 MG Tab PO SCH (09:00)
== END 2019-07-28 09:40 | disposition home or self-care (01) | DRG 831 ==
LOC: JD.ED 10:10 → JD.OB 13:11
PROVIDERS: ADMIT Obstetrics & Gynecology; ATTEND Obstetrics & Gynecology
DX: O45.92 Premature separation of placenta, unspecified, second trimester (principal); O44.52 Low lying placenta with hemorrhage, second trimester; O20.0 Threatened abortion; Z87.891 Personal history of nicotine dependence; Z3A.16 16 weeks gestation of pregnancy
CPT/HCPCS: 36415; 76815; 76815-26; 80053; 81001; 84702; 85007; 85027; 85460; 85610; 85730; 86592; 86850; 86870; 86900; 86901; 96361; 96374; 96375; 99284; 99285-25; A9270-GY; J1170; J2060; J2405; J2550; J2765; J7040; J7050